=== PATIENT | female | born 1955 | race Caucasian/White ===

== ENCOUNTER 2023-08-10 11:02 | Outpatient (CLI) | payer MEDICARE, OTHER, SELFPAY | END 2023-08-10 11:03 | disposition home or self-care (01) | LOC: LAB 11:05 | PROVIDERS: PCP Student in an Organized Health Care Education/Training Program; Visit Provider Surgery | DX: Z01.818 Encounter for other preprocedural examination (principal) | CPT/HCPCS: 36415; 86850; 86900; 86901 ==

== ENCOUNTER 2023-08-12 09:21 | Day surgery (SDC) | payer MEDICARE, OTHER, SELFPAY ==
[2023-08-12] VITALS (31 sets, daily range): BP systolic 85–139; BP diastolic 39–86; PULSE 52–94; RESP 10–20; TEMP 35.2–37.1; O2SAT 92–100; BMI 39.4
[2023-08-12] MEDS: LACTATED RINGERS 1000 ML 1,000 ML 100 ML IV ×2 (09:30→12:27)
[2023-08-12] MEDS: ACETAMINOPHEN 500 MG TABLET 1000 MG PO ×3 (09:38→21:32)
[2023-08-12] MEDS: OXYCODONE (CR) 10 MG TAB.ER.12H PO (09:39)
[2023-08-12] MEDS: SODIUM CHLORIDE 0.9 % (FLUSH) 10 ML SYRINGE IVF (09:39)
[2023-08-12] MEDS: CELECOXIB 200 MG CAPSULE PO (09:39)
[2023-08-12] MEDS: fentaNYL 100 MCG/2 ML inj IVP (10:49)
[2023-08-12] MEDS: MIDAZOLAM HCL 1 MG/ML inj IVP (10:49)
--- NOTE | 2023-08-12 11:01 | SUR.PREOP ---
Addendum entered by Shraddha Siddiqui RN 08/12/23 11:03: Time Out [id number] Original Note: TIME?OUT:? PT/RN/MDA?VERIFICATION?OF?SURGICAL?SITE Left Hip,?PROCEDURE Nerve Block,?AND?CONSENT OBTAINED?PRIOR?TO?INVASIVE?PROCEDURE.
[2023-08-12] MEDS: TRANEXAMIC ACID 100 MG/ML INJ 1000 MG IV (11:35)
[2023-08-12] MEDS: CEFAZOLIN 2 GM INJ IVP (11:39)
--- NOTE | 2023-08-12 11:45 | CRLHL7_ITS ---
For Patients: As a result of the Cures Act, medical imaging exams and procedure reports are released immediately into your electronic medical record. You may view this report before your referring provider. If you have questions, please contact your health care provider. Indication: Hip replacement surgery Technique: AP hip fluoroscopic images. Fluoroscopy time 41.2 seconds. Findings/Impression: Hardware from a left total hip arthroplasty is in satisfactory position. Dictated by Jorge Brown MD @ 08/13/2023 6:21:25 AM (Electronically Signed)
--- NOTE | 2023-08-12 12:41 | CRLHL7_ITS ---
For Patients: As a result of the Cures Act, medical imaging exams and procedure reports are released immediately into your electronic medical record. You may view this report before your referring provider. If you have questions, please contact your health care provider. Indication: Postop Technique: AP hip center pelvis and lateral view left hip Findings/Impression: Hardware from a left total hip arthroplasty is in satisfactory position. Bone alignment is normal. No sign of acute fracture. Postop changes are within normal limits. Dictated by Jorge Brown MD @ 08/13/2023 6:23:14 AM (Electronically Signed)
--- NOTE | 2023-08-12 12:44 | PM.ORPRC ---
Procedure Note Date of procedure: 08/12/23 Procedure: PREOPERATIVE DIAGNOSIS: Left hip osteoarthritis POSTOPERATIVE DIAGNOSIS: Left hip osteoarthritis NAME OF OPERATION: Left total hip arthroplasty SURGEON: Jos eLuis Hunter MD STRAW HAT MACHINE OPERATOR: Mariza Grace PA-C, ANABEL Vazquez IMPLANTS: 1. [employer] [place] # 52 sector ingrowth cup 2. 36 x 52 +4 neutral polyethylene 3. Actis # 7 standard collared ingrowth stem 4. 36 + 1.5 ceramic femoral head ANESTHESIA: General ESTIMATED BLOOD LOSS: 850 cc COMPLICATIONS: None SPECIMENS: None DRAINS: None PREOPERATIVE ANTIBIOTICS: Ancef 2 grams INDICATIONS: The patient is a 68-year-old with a longstanding history of severe, unrelenting left hip pain secondary to end-stage left hip osteoarthritis. Despite appropriate nonoperative management, including activity modification, use of an assist device, anti-inflammatories, [id number] pain medication, physical therapy and injections, they continue to have pain and disability. Operative intervention was offered. The risks, benefits and expected outcomes were discussed in detail. These included but were not limited to: Infection, bleeding, injury to blood vessel or nerve, venous thromboembolism. All questions were answered to their satisfaction. Use of an transition assistant was necessary throughout the case for patient positioning and safety, soft tissue retraction and closure. PROCEDURE: The patient was placed supine on the [place] table. General anesthesia was administered. The transition assistant made sure the patient was properly positioned. The left hip was prepped and draped in the usual sterile fashion. The image intensifier was brought in for a perfect AP pelvis and a perfect double tear drop AP view of each hip which were used for intraoperative templating with our fluoroscopic guide. An oblique incision was made 3 cm distal and 3 cm lateral to the anterior superior iliac spine. The transition assistant retracted the soft tissues to protect them. Subcutaneous dissection was taken with electrocautery to the superficial fascia. The fascia was divided in line with the incision. Blunt dissection was carried medially to the tensor fascia mervin and sartorius interval. Deep dissection was carried with electrocautery. The circumflex vessels were cauterized and divided. The capsule was exposed and then divided in a T-fashion, tagged with #1 Ethibond sutures. Retractors were placed in the joint, held by the transition assistant. The corkscrew was placed in the femoral head. The neck cut was made in the subcapital region. We made a second neck cut more distal. The napkin ring of bone was removed. The femoral head was removed intact. Acetabular retractors were placed, held by the transition assistant. The labrum was sharply debrided. The capsule was released. The 43 mm reamer was used to the true medial wall. We then enlarged in 2 mm increments using the image intensifier for our reamer placement. We impacted the cup which had excellent purchase. We placed the hole eliminator and the polyethylene. Attention was then turned to the proximal femur. The limb was placed in 140 degrees of external rotation, maximum extension and adduction. A significant amount of time was spent releasing the capsule to allow us to deliver the femur into the wound and complete the femoral side safely. Retractors were held by the transition assistant throughout the femoral preparation. The final cigar and box examiner and canal finder were used. Broaches were used to a stable size. The calcar reamer was used. Trial components were placed. The hip was reduced and was found to be stable with appropriate soft tissue tension. Length and offset had been nicely restored using the image intensifier and our fluoroscopic guide. Trial components were removed. The stem was impacted. We placed the femoral head. Again, the hip was reduced and was found to be stable with appropriate soft tissue tension. Length and offset had been nicely restored. The transition assistant did a three minute dilute Betadine solution soak. The transition assistant irrigated the wound with 3 liters of normal saline via pulse lavage. The transition assistant repaired the anterior capsule with a #1 Vicryl and our previously placed Ethibond sutures. The transition assistant closed the fascia over the tensor fascia mervin with a #1 PDO Stratafix, subcutaneous tissues with 2-0 Vicryl, skin with a running 3-0 Stratafix and glue. A dry dressing was applied by the transition assistant. Sponge and needle counts were correct x 2. The patient tolerated the procedure well; there were no apparent complications. They were awakened and extubated in the operating room, sent to the Post-Anesthesia Care Unit in satisfactory condition. PLAN: 1. The patient will be mobilized with physical therapy, weight-bearing as tolerates 2. Xarelto x 5 days then aspirin x 30 days will be used for DVT prophylaxis 3. The patient will be discharged once medically appropriate
--- NOTE | 2023-08-12 13:37 | W.ANESCHARGE ---
Anesthesia Charges Start Date/Time Anesthesia Start Date: 08/12/23 Anesthesia Start Time: 11:08 Stop Date/Time Anesthesia Stop Date: 08/12/23 Anesthesia Stop Time: 13:34
--- NOTE | 2023-08-12 13:42 | P.NB_ITS ---
Nerve Block Nerve Block Time Seen by Provider: 10:57 Date Seen: 08/12/23 Type of block requested by surgeon for post-operative analgesia: FAVIOLA/LFCN Side: left Time out performed: Yes Verification of patient name: Yes Verification of date of : Yes Site marking: site marked Name of person performing procedure: Albert Assistants, if any: [place] Continuous monitoring Was continuous monitoring of O2 sat, B/P, monitoring and evaluation advisor, recorded every 15 minutes?: Yes Procedure Checklist: sterile prep, needles and gloves Ultrasound guided. Images saved: Yes Medications given in 5ml increments after negative aspiration: Ropivicaine %: 0.5 mL: 30 Needle gauge: 20 Decadron (mg): 10 Precedex (mcg): 25 Patient tolerated procedure well: Yes Additional comments: Needle noted below psoas tendon needle noted adjacent to LFCN Block Charges Block Charge (with Pro Fee): Other Periph Nerve Block Use of Ultrasound Machine for Block: Yes- US Guidance/pain block
--- NOTE | 2023-08-12 13:43 | W.ANESCHARGE ---
Anesthesia Charges Start Date/Time Anesthesia Start Date: 08/12/23 Anesthesia Start Time: 11:08 Stop Date/Time Anesthesia Stop Date: 08/12/23 Anesthesia Stop Time: 13:34
[2023-08-12] MEDS: ONDANSETRON 2 MG/ML inj 4 MG IVP ×2 (13:45→20:43)
[2023-08-12] MEDS: KETOROLAC 15 MG/ML inj IVP (13:47)
[2023-08-12] MEDS: fentaNYL 100 MCG/2 ML inj 50 MCG IVP ×2 (14:00→14:24)
--- NOTE | 2023-08-12 15:12 | PM.IMCN1 ---
Date of Consult Consult date: 08/12/23 Requesting Physician: Orthopedics Primary Care Provider: Nori Haque PA-C Consult Narrative Narrative: HOSPITALIST CONSULT NAME OF OPERATION: Left total hip arthroplasty SURGEON: Jose Luis Hunter MD PLANT ELECTRICIAN: Mariza Grace PA-C, ANABEL Vazquez ANESTHESIA: General ESTIMATED BLOOD LOSS: 850 cc - pre-op hemoglobin 14.8 on 08/03/23 COMPLICATIONS: None SPECIMENS: None DRAINS: None The hospital medicine team was asked by the orthopedic surgery team to manage the patient's hypertension, acute blood loss, obesity. There have been no perioperative complications. However, the 850 mL blood loss is noted. Updated and reviewed the active medical problems, past medical history, past surgical history, social history, allergies and medications in our electronic EMR. From PCP Patient is a 68-year-old female who presents today for preop evaluation and clearance prior to left hip replacement on 08/12/2023. Patient is vitally stable. She has never had general anesthesia in the past. She has no family history of difficulty with anesthesia. She feels well and denies any chest pain, shortness of breath, abdominal pain, or changes in bowel or bladder. PHYSICAL EXAM: sleepy. alert when awakened. c/o of pain. CODE STATUS: FULL CODE CONSTITUTIONAL: Conversive, good historian. A/O. Knows setting and context. VITAL SIGNS: 101/83. Pulse 60. Respirations 10. Afebrile. O2 sat 90% air HEENT: Normocephalic, atraumatic. PERRL, EOMI, conjunctivae pink, no scleral icterus. Ears and nose externally normal. Pharynx normal. NECK: No JVD. No carotid bruit, no thyromegaly, no adenopathy. CHEST: Clear to auscultation bilaterally HEART: S1 and S2 normal. ABDOMEN: Flat, soft, nontender. Normal bowel sounds. Moderately obese. EXTREMITIES: No edema. MUSCULOSKELETAL: NEURO: Cranial nerves intact. Mentation normal. Normal affect. SKIN: No rashes, petechiae, concerning changes PSYCHIATRIC: Mentation normal. INVESTIGATIONS: EMR Reviewed; Pre-OP Reviewed DISPOSITION: DVT: Agree with Ortho team decision GI: PO intake PFSH [facility] Medical History (Updated 08/12/23 @ 15:38 by Keysha Ontiveros MD) History of tobacco abuse ?Z87.891 - Personal history of nicotine dependence (ICD-10) Bilateral hip joint arthritis ?M16.0 - Bilateral primary osteoarthritis of hip (ICD-10) Hypertension ?I10 - Essential (primary) hypertension (ICD-10) Osteopenia ?M85.80 - Other specified disorders of bone density and structure, unspecified site (ICD-10) Vitamin D deficiency ?E55.9 - Vitamin D deficiency, unspecified (ICD-10) Hyperlipidemia ?E78.5 - Hyperlipidemia, unspecified (ICD-10) Surgical History (Updated 08/12/23 @ 15:38 by Keysha Ontiveros MD) Status post total hip replacement, left ?Z96.642 - Presence of left artificial hip joint (ICD-10) History of ?Z98.891 - History of uterine scar from previous surgery (ICD-10) Social History What is your current living situation?: I presently have a place to live In the past 12 months, utilities in danger of being shut off: no In past 12 months, lack of transportation kept you from medical appts, meetings, work, or getting things needed for daily living: no In the past 12 mos, have been you worried that your food would run out before you had money to buy more?: never true In the past 12 mos, the food you bought just didn't last and you didn't have money to buy more?: never true Smoking Status: Former smoker Do you use any of these nicotine containing products: E-Cigarettes Second hand tobacco smoke exposure: No How often do you have a drink containing alcohol: never AUDIT-C Alcohol total score: 0 Non-prescribed substance use: denies use Caffeine: No How often does anyone, including family, friends and others, physically hurt you: never How often does anyone, including family, friends and others, insult or talk down to you: never How often does anyone, including family, friends and others, threaten you with harm: never How often does anyone, including family, friends and others, scream or curse at you: never Meds Home Medications and Allergies Home Medications Medication Instructions Recorded Confirmed Type atorvastatin 20 mg tablet 20 mg PO HS 07/21/23 08/12/23 History calcium carb-vit [id number] 1 tab PO DAILY 07/21/23 08/12/23 History 333 mg-200 unit-133 mg-5 mg tablet hydrochlorothiazide 12.5 mg tablet 12.5 mg PO DAILY 07/21/23 08/12/23 History lisinopril 10 mg tablet 10 mg PO DAILY 07/21/23 08/12/23 History meloxicam 15 mg tablet 15 mg PO DAILY 07/21/23 08/12/23 History cholecalciferol (vitamin D3) 25 25 mcg PO DAILY 08/12/23 08/12/23 History mcg (1,000 unit) capsule multivitamin with minerals-folic 1 tab PO DAILY 08/12/23 08/12/23 History acid 0.4 mg tablet (One-A-Day Women's 50 Plus) Allergies Allergy/AdvReac Type Severity Reaction Status Date / Time codeine Allergy Mild feeling as Verified 08/12/23 09:29 if flying out of body Penicillins Allergy Hives Verified 08/12/23 09:29 Exam Const: Vital Signs, click to edit/add: Vital Signs - 24 hr 08/12/23 09:40 08/12/23 10:48 08/12/23 10:50 Temperature 98.4 F Pulse Rate 79 70 65 Respiratory Rate 16 16 16 Blood Pressure 139/86 128/81 117/60 Blood Pressure [Le ft Arm] Pulse Oximetry 97 99 97 Oxygen Delivery Me thod Room Air Nasal Cannula Nasal Cannula Oxygen Flow Rate 2 2 08/12/23 10:55 08/12/23 11:00 08/12/23 13:29 Temperature 97.0 F L Pulse Rate 64 66 94 Respiratory Rate 16 16 20 Blood Pressure 115/79 121/57 L 136/64 Blood Pressure [Le ft Arm] Pulse Oximetry 97 95 96 Oxygen Delivery Me thod Nasal Cannula Nasal Cannula Room Air Oxygen Flow Rate 2 2 08/12/23 13:34 08/12/23 13:39 08/12/23 13:44 Temperature Pulse Rate 82 70 64 Respiratory Rate 20 18 18 Blood Pressure 128/72 111/58 L 109/50 L Blood Pressure [Le ft Arm] Pulse Oximetry 96 96 96 Oxygen Delivery Me thod Room Air Room Air Room Air Oxygen Flow Rate 08/12/23 13:49 08/12/23 13:54 08/12/23 13:59 Temperature Pulse Rate 64 62 54 L Respiratory Rate 18 16 16 Blood Pressure 110/57 L 95/57 L 111/39 L Blood Pressure [Le ft Arm] Pulse Oximetry 96 96 96 Oxygen Delivery Me thod Room Air Room Air Room Air Oxygen Flow Rate 08/12/23 14:04 08/12/23 14:09 08/12/23 14:15 Temperature Pulse Rate 53 L 55 L 52 L Respiratory Rate 12 12 12 Blood Pressure 102/53 L 108/52 L 113/60 Blood Pressure [Le ft Arm] Pulse Oximetry 93 93 93 Oxygen Delivery Me thod Room Air Room Air Nasal Cannula Oxygen Flow Rate 4 08/12/23 14:20 08/12/23 14:25 08/12/23 14:30 Temperature Pulse Rate 57 L 54 L 55 L Respiratory Rate 12 12 12 Blood Pressure 122/61 129/66 108/59 L Blood Pressure [Le ft Arm] Pulse Oximetry 100 100 98 Oxygen Delivery Me thod Nasal Cannula Nasal Cannula Room Air Oxygen Flow Rate 4 2 08/12/23 15:06 Temperature 96.4 F L Pulse Rate 60 Respiratory Rate 10 L Blood Pressure Blood Pressure [Le ft Arm] 101/83 Pulse Oximetry Oxygen Delivery Me thod Room Air Oxygen Flow Rate Assessment and Plan Assessment and plan (1) Status post total hip replacement, left: Problem comment: Elsa PLATT, 08/12/23. -will monitor blood loss (850cc reported) effect with orthostatics, blood pressure measurement and f/u hemoglobin in am. - Hospital medicine team is happy to follow through to discharge. I will hold her antihypertensives in the morning. will follow, as above, orthostatics, blood pressure and follow-up hemoglobins Status: Acute (2) Hypertension: Problem comment: hydrochlorothiazide 12.5 mg daily, lisinopril 10 mg daily - on hold for 08/13 Status: Acute (3) Obesity: Problem comment: BMI 38 Status: Acute (4) History of tobacco abuse: Problem comment: 1982 to 2022 Status: Acute
[2023-08-12] MEDS: OXYCODONE 5 MG TABLET PO ×2 (15:46→19:37)
--- NOTE | 2023-08-12 16:09 | PC.NURSE ---
Addendum entered by Dolly Patton RN 08/12/23 16:18: Care plan initiated. Pt admitted under MS recovery. Original Note: Pt arrived via hospital bed from PACU s/p LTHA with Dr. Hunter at 1441. Pt settled by Hansa HYDE and initial assessment from PACU completed. Please see frequent post op VS per protocol. Report provided to Nicolette HYDE for evening shift.
[2023-08-12] MEDS: LACTATED RINGERS 1000 ML 1,000 ML 75 ML IV (17:59)
[2023-08-12] MEDS: CEFAZOLIN 2 GM in 0.9 % SODIUM CHLORIDE Mini-bag 100 ML IVPB (18:02)
[2023-08-12] MEDS: ATORVASTATIN 10 MG TABLET 20 MG PO (20:57)
[2023-08-12] MEDS: SENNOSIDES 1 TAB TABLET 2 TAB PO (20:58)
[2023-08-13] MEDS: OXYCODONE 5 MG TABLET PO ×2 (00:02→07:47)
[2023-08-13] MEDS: CEFAZOLIN 2 GM in 0.9 % SODIUM CHLORIDE Mini-bag 100 ML IVPB (02:17)
[2023-08-13 02:20] VITALS: BP 120/68; PULSE 75; RESP 18; TEMP 36.8; O2SAT 97
[2023-08-13] MEDS: ACETAMINOPHEN 500 MG TABLET 1000 MG PO ×2 (05:15→10:00)
[2023-08-13 06:32] VITALS: BP 109/54; BP 118/64; BP 120/58; PULSE 71; PULSE 83; PULSE 93
--- NOTE | 2023-08-13 06:39 | PC.NURSE ---
Shift note [id number]: Pt alert & oriented x 4 and able to make needs known. She has been continent of bladder and has been ambulating to bathroom with FWW, GB and assist of 1-2. Pt able to safely ambulate with assist of 1 with last transfer/ambulation this morning. Pain to left hip has been controlled with PRN Oxycodone, rest, repositioning and ice. Pt reported pain to left hip 1/10 at rest though requested PRN Oxycodone to take before transferring/ambulating to bathroom and then getting into bed. Dressing to left hip noted to be clean, dry and intact. CMS to LLE noted to be intact with TEDs and SCDs worn. IV to R wrist SL after last IV ABX. Pt has had no c/o shortness of breath, CP, N/V or numbness or tingling. Pt has been continent of bladder with last BM of 08/11/23 per pt report. Orthostatic blood pressure assessment completed per MD order: Lying B/P 118/64 and lying pulse of 71, sitting B/P 120/58 and sitting pulse of 83 and standing B/P of 109/54 and standing pulse of 93. Pt denies dizziness/lightheadedness with transferring/ambulation when asked. IS performed with pt reaching 1,500 mL.
[2023-08-13 06:44] LABS: Mean Corpuscular HGB Conc 32 gm/dL (32-36); Mean Corpuscular Hemoglobin 32 pg (26-34); Mean Corpuscular Volume 100 fL (80-100); Monocytes Percent Auto 9.8 % (0.0-11.0); Platelet Count* 233 K/uL (140-440); RDW Coefficient of Variation % 12.5 % (11.5-15.5); Red Blood Count 3.79 m/uL (4.00-5.20); White Blood Count* 12.29 K/uL (4.50-11.00)
[2023-08-13 06:45] LABS: Basophils Percent Auto 0.1 % (0.0-3.0); Immature Granulocytes Pct Auto 0.1 %
[2023-08-13 06:47] LABS: Slide Review Reflex No
[2023-08-13 07:05] LABS: Sodium* 136 mmol/L (135-149)
[2023-08-13 07:06] LABS: Potassium* 4.5 mmol/L (3.6-5.1)
[2023-08-13 07:09] LABS: Blood Urea Nitrogen* 19 mg/dL (7-30); Creatinine* 0.8 mg/dL (0.5-1.5); Est. Creatinine Clearance* 45.16; Estimated Glomerular Filt Rate 81 ml/min
[2023-08-13 07:30] VITALS: BP 115/87; PULSE 73; RESP 18; TEMP 37.1; O2SAT 99
--- NOTE | 2023-08-13 08:20 | PM.ORPN ---
Subjective Subjective Date Seen: 08/13/23 Interval history: Pain well controlled Ortho Exam Narrative Exam Narrative: No calf tenderness CMS normal Const Vital Signs, click to edit/add: Vital Signs - 24 hr 08/12/23 09:40 08/12/23 10:48 08/12/23 10:50 Temperature 98.4 F Pulse Rate 79 70 65 Pulse Rate [Pulse Oximeter] Pulse Rate [orthostatic lying Left Radial] Pulse Rate [orthostatic sitting Left Radial] Pulse Rate [orthostatic standing Left Radial] Respiratory Rate 16 16 16 Blood Pressure 139/86 128/81 117/60 Blood Pressure [Left Arm] Blood Pressure [orthostatic lying Left Arm] Blood Pressure [orthostatic sitting Left Arm] Blood Pressure [orthostatic standing Left Arm] Pulse Oximetry 97 99 97 Oxygen Delivery Method Room Air Nasal Cannula Nasal Cannula Oxygen Flow Rate 2 2 08/12/23 10:55 08/12/23 11:00 08/12/23 13:29 Temperature 97.0 F L Pulse Rate 64 66 94 Pulse Rate [Pulse Oximeter] Pulse Rate [orthostatic lying Left Radial] Pulse Rate [orthostatic sitting Left Radial] Pulse Rate [orthostatic standing Left Radial] Respiratory Rate 16 16 20 Blood Pressure 115/79 121/57 L 136/64 Blood Pressure [Left Arm] Blood Pressure [orthostatic lying Left Arm] Blood Pressure [orthostatic sitting Left Arm] Blood Pressure [orthostatic standing Left Arm] Pulse Oximetry 97 95 96 Oxygen Delivery Method Nasal Cannula Nasal Cannula Room Air Oxygen Flow Rate 2 2 08/12/23 13:34 08/12/23 13:39 08/12/23 13:44 Temperature Pulse Rate 82 70 64 Pulse Rate [Pulse Oximeter] Pulse Rate [orthostatic lying Left Radial] Pulse Rate [orthostatic sitting Left Radial] Pulse Rate [orthostatic standing Left Radial] Respiratory Rate 20 18 18 Blood Pressure 128/72 111/58 L 109/50 L Blood Pressure [Left Arm] Blood Pressure [orthostatic lying Left Arm] Blood Pressure [orthostatic sitting Left Arm] Blood Pressure [orthostatic standing Left Arm] Pulse Oximetry 96 96 96 Oxygen Delivery Method Room Air Room Air Room Air Oxygen Flow Rate 08/12/23 13:49 08/12/23 13:54 08/12/23 13:59 Temperature Pulse Rate 64 62 54 L Pulse Rate [Pulse Oximeter] Pulse Rate [orthostatic lying Left Radial] Pulse Rate [orthostatic sitting Left Radial] Pulse Rate [orthostatic standing Left Radial] Respiratory Rate 18 16 16 Blood Pressure 110/57 L 95/57 L 111/39 L Blood Pressure [Left Arm] Blood Pressure [orthostatic lying Left Arm] Blood Pressure [orthostatic sitting Left Arm] Blood Pressure [orthostatic standing Left Arm] Pulse Oximetry 96 96 96 Oxygen Delivery Method Room Air Room Air Room Air Oxygen Flow Rate 08/12/23 14:04 08/12/23 14:09 08/12/23 14:15 Temperature Pulse Rate 53 L 55 L 52 L Pulse Rate [Pulse Oximeter] Pulse Rate [orthostatic lying Left Radial] Pulse Rate [orthostatic sitting Left Radial] Pulse Rate [orthostatic standing Left Radial] Respiratory Rate 12 12 12 Blood Pressure 102/53 L 108/52 L 113/60 Blood Pressure [Left Arm] Blood Pressure [orthostatic lying Left Arm] Blood Pressure [orthostatic sitting Left Arm] Blood Pressure [orthostatic standing Left Arm] Pulse Oximetry 93 93 93 Oxygen Delivery Method Room Air Room Air Nasal Cannula Oxygen Flow Rate 4 08/12/23 14:20 08/12/23 14:25 08/12/23 14:30 Temperature Pulse Rate 57 L 54 L 55 L Pulse Rate [Pulse Oximeter] Pulse Rate [orthostatic lying Left Radial] Pulse Rate [orthostatic sitting Left Radial] Pulse Rate [orthostatic standing Left Radial] Respiratory Rate 12 12 12 Blood Pressure 122/61 129/66 108/59 L Blood Pressure [Left Arm] Blood Pressure [orthostatic lying Left Arm] Blood Pressure [orthostatic sitting Left Arm] Blood Pressure [orthostatic standing Left Arm] Pulse Oximetry 100 100 98 Oxygen Delivery Method Nasal Cannula Nasal Cannula Room Air Oxygen Flow Rate 4 2 08/12/23 14:41 08/12/23 14:41 08/12/23 15:00 Temperature 96.4 F L 96.4 F L 96.9 F L Pulse Rate Pulse Rate [Pulse Oximeter] 60 60 52 L Pulse Rate [orthostatic lying Left Radial] Pulse Rate [orthostatic sitting Left Radial] Pulse Rate [orthostatic standing Left Radial] Respiratory Rate 10 L 10 L 12 Blood Pressure Blood Pressure [Left Arm] 101/83 101/83 110/48 L Blood Pressure [orthostatic lying Left Arm] Blood Pressure [orthostatic sitting Left Arm] Blood Pressure [orthostatic standing Left Arm] Pulse Oximetry 96 96 97 Oxygen Delivery Method Room Air Room Air Room Air Oxygen Flow Rate 08/12/23 15:00 08/12/23 15:06 08/12/23 15:15 Temperature 96.9 F L 96.4 F L 96.4 F L Pulse Rate 60 Pulse Rate [Pulse Oximeter] 52 L 56 L Pulse Rate [orthostatic lying Left Radial] Pulse Rate [orthostatic sitting Left Radial] Pulse Rate [orthostatic standing Left Radial] Respiratory Rate 12 10 L 12 Blood Pressure Blood Pressure [Left Arm] 110/48 L 101/83 90/42 L Blood Pressure [orthostatic lying Left Arm] Blood Pressure [orthostatic sitting Left Arm] Blood Pressure [orthostatic standing Left Arm] Pulse Oximetry 97 92 Oxygen Delivery Method Room Air Room Air Room Air Oxygen Flow Rate 08/12/23 15:30 08/12/23 15:45 08/12/23 16:00 Temperature 95.3 F L 95.3 F L 95.3 F L Pulse Rate Pulse Rate [Pulse Oximeter] 57 L 66 68 Pulse Rate [orthostatic lying Left Radial] Pulse Rate [orthostatic sitting Left Radial] Pulse Rate [orthostatic standing Left Radial] Respiratory Rate 14 12 14 Blood Pressure Blood Pressure [Left Arm] 108/58 L 105/65 85/68 L Blood Pressure [orthostatic lying Left Arm] Blood Pressure [orthostatic sitting Left Arm] Blood Pressure [orthostatic standing Left Arm] Pulse Oximetry 92 95 95 Oxygen Delivery Method Room Air Room Air Room Air Oxygen Flow Rate 08/12/23 16:30 08/12/23 17:30 08/12/23 18:30 Temperature 95.6 F L 96.5 F L 97.1 F L Pulse Rate Pulse Rate [Pulse Oximeter] 79 66 76 Pulse Rate [orthostatic lying Left Radial] Pulse Rate [orthostatic sitting Left Radial] Pulse Rate [orthostatic standing Left Radial] Respiratory Rate 14 14 16 Blood Pressure Blood Pressure [Left Arm] 97/57 L 99/53 L 112/62 Blood Pressure [orthostatic lying Left Arm] Blood Pressure [orthostatic sitting Left Arm] Blood Pressure [orthostatic standing Left Arm] Pulse Oximetry 95 97 98 Oxygen Delivery Method Room Air Room Air Room Air Oxygen Flow Rate 08/12/23 19:30 08/12/23 20:29 08/12/23 23:56 Temperature 97.3 F L 98.7 F 96.9 F L Pulse Rate Pulse Rate [Pulse Oximeter] 73 86 70 Pulse Rate [orthostatic lying Left Radial] Pulse Rate [orthostatic sitting Left Radial] Pulse Rate [orthostatic standing Left Radial] Respiratory Rate 16 16 16 Blood Pressure Blood Pressure [Left Arm] 104/62 107/61 103/52 L Blood Pressure [orthostatic lying Left Arm] Blood Pressure [orthostatic sitting Left Arm] Blood Pressure [orthostatic standing Left Arm] Pulse Oximetry 94 94 93 Oxygen Delivery Method Room Air Room Air Room Air Oxygen Flow Rate 2 08/13/23 02:20 08/13/23 06:32 Temperature 98.2 F Pulse Rate Pulse Rate [Pulse Oximeter] 75 Pulse Rate [orthostatic lying Left Radial] 71 Pulse Rate [orthostatic sitting Left Radial] 83 Pulse Rate [orthostatic standing Left Radial] 93 Respiratory Rate 18 Blood Pressure Blood Pressure [Left Arm] 120/68 Blood Pressure [orthostatic lying Left Arm] 118/64 Blood Pressure [orthostatic sitting Left Arm] 120/58 L Blood Pressure [orthostatic standing Left Arm] 109/54 L Pulse Oximetry 97 Oxygen Delivery Method Room Air Oxygen Flow Rate Assessment and Plan Assessment and plan (1) Status post total hip replacement, left: Status: Acute Plan Doing well after left total hip arthroplasty DC home today after therapy.
[2023-08-13] MEDS: RIVAROXABAN 10 MG TABLET PO (08:35)
[2023-08-13] MEDS: SENNOSIDES 1 TAB TABLET 2 TAB PO (08:36)
--- NOTE | 2023-08-13 12:01 | PC.NURSE ---
Pt eval by Dr. Hunter and ortho PA. PT evaluation with Tanisha Kingsley OT eval with Tanisha. IV site discontinued. Pt rating her left hip pain 1-2 out of 10. See eMar for medications provided. Pt verbalized understanding of d/c diagnosis, home meds, new prescriptions, f/up appt and sx to report urgently. Dressing CDI, active ice sent home with patient. Discharged via w/c at 11:15 am w/personal belongings to own home with son Shaggy as transportation.
== END 2023-08-13 11:15 | disposition home or self-care (01) ==
LOC: OR 09:22 → MEDSURG 09:25
PROVIDERS: PCP Student in an Organized Health Care Education/Training Program; Visit Provider Orthopaedic Surgery
PROC: (CPT 27130; principal; 2023-08-12 11:45)
DX: M16.12 Unilateral primary osteoarthritis, left hip (principal); G89.18 Other acute postprocedural pain; D62 Acute posthemorrhagic anemia; I10 Essential (primary) hypertension; E66.9 Obesity, unspecified; Z68.38 Body mass index [BMI] 38.0-38.9, adult
CPT/HCPCS: 27130; 01214; 36415; 64450; 73501; 76000; 76942; 82565; 84132; 84295; 84520; 85025; 97116; 97161; 97165; 97535; A9270; C1776; J0690; J1100; J1170; J1200; J1885; J2250; J2405; J2704; J2710; J2795; J3010; J7120

== ENCOUNTER 2023-09-09 13:00 | Outpatient (RCR) | payer MEDICARE, OTHER, SELFPAY | END 2023-10-20 15:08 | disposition home or self-care (01) | PROVIDERS: PCP Student in an Organized Health Care Education/Training Program; Visit Provider Orthopaedic Surgery | DX: M16.12 Unilateral primary osteoarthritis, left hip (principal); Z96.642 Presence of left artificial hip joint; Z51.89 Encounter for other specified aftercare | CPT/HCPCS: 97110; 97116; 97161 ==

== ENCOUNTER 2024-01-12 13:05 | Observation (INO) | payer MEDICARE, OTHER, SELFPAY ==
[2024-01-12] VITALS (14 sets, daily range): BP systolic 127–139; BP diastolic 74–96; PULSE 62–84; RESP 18–20; TEMP 36.1–37.3; O2SAT 94–98; BMI 38.6; BMI 37.8
--- NOTE | 2024-01-12 15:19 | ED.GENADULT ---
HPI - General Adult General Time Seen by Provider: 15:19 Date Seen: 01/12/24 Chief complaint: Hip Injury/Pain Stated complaint: L hip pain, swelling Time Seen by Provider: 01/12/24 15:18 Source: patient and RN notes reviewed Mode of arrival: ambulatory Limitations: no limitations History of Present Illness HPI narrative: This 68yo female is coming in with redness on the outside of her left hip. She is not aware of any injury or anything causing loss of integrity of the skin. Her left hip has been more painful really since this weekend, hurting in the groin to walk more than usual, hurts with getting out of bed/position changes. Friday she felt like she was freezing but she didn't note any temperatures. No night sweats. She walked by the mirror today and noticed significant redness of the skin over the hip area. Skin is sore. Her left hip was replaced here by Dr. Hunter on 08/12/23 for arthritis per report. Related Data Home Medications Medication Instructions Recorded Confirmed atorvastatin 20 mg tablet 20 mg PO HS 07/21/23 01/12/24 calcium carb-vit [id number] 1 tab PO DAILY 07/21/23 01/12/24 333 mg-200 unit-133 mg-5 mg tablet hydrochlorothiazide 12.5 mg tablet 12.5 mg PO DAILY 07/21/23 01/12/24 lisinopril 10 mg tablet 10 mg PO DAILY 07/21/23 01/12/24 cholecalciferol (vitamin D3) 25 25 mcg PO DAILY 08/12/23 01/12/24 mcg (1,000 unit) capsule multivitamin with minerals-folic 1 tab PO DAILY 08/12/23 01/12/24 acid 0.4 mg tablet (One-A-Day Women's 50 Plus) diclofenac sodium 1 % topical gel 2 g topical QID 01/12/24 01/12/24 Allergies Allergy/AdvReac Type Severity Reaction Status Date / Time codeine Allergy Mild feeling as Verified 09/24/23 10:50 if flying out of body Penicillins Allergy Hives Verified 09/24/23 10:50 [place] And Derivatives AdvReac Mild Hives Verified 01/12/24 19:50 berries AdvReac Mild Hives Uncoded 01/12/24 19:50 Review of Systems Status of ROS: Reports: 6 or more systems reviewed and unremarkable except as noted in History and below [facility] Medical History History of tobacco abuse ?Z87.891 - Personal history of nicotine dependence (ICD-10) Bilateral hip joint arthritis ?M16.0 - Bilateral primary osteoarthritis of hip (ICD-10) Hypertension ?I10 - Essential (primary) hypertension (ICD-10) Osteopenia ?M85.80 - Other specified disorders of bone density and structure, unspecified site (ICD-10) Vitamin D deficiency ?E55.9 - Vitamin D deficiency, unspecified (ICD-10) Hyperlipidemia ?E78.5 - Hyperlipidemia, unspecified (ICD-10) Surgical History Status post total hip replacement, 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) ?Z96.642 - Presence of left artificial hip joint (ICD-10) History of ?Z98.891 - History of uterine scar from previous surgery (ICD-10) Social History What is your current living situation?: I presently have a place to live Problems where you live: no known problems Problems where you live details: N/A In the past 12 months, utilities in danger of being shut off: no In past 12 months, lack of transportation kept you from medical appts, meetings, work, or getting things needed for daily living: no In the past 12 mos, have been you worried that your food would run out before you had money to buy more?: never true In the past 12 mos, the food you bought just didn't last and you didn't have money to buy more?: never true Highest level of school completed/degree received: high school graduate Smoking Status: Former smoker Do you use any of these nicotine containing products: E-Cigarettes Second hand tobacco smoke exposure: No How often do you have a drink containing alcohol: never AUDIT-C Alcohol total score: 0 Non-prescribed substance use: denies use Caffeine: Yes How often does anyone, including family, friends and others, physically hurt you: never How often does anyone, including family, friends and others, insult or talk down to you: never How often does anyone, including family, friends and others, threaten you with harm: never How often does anyone, including family, friends and others, scream or curse at you: never service: No Exam Const: Vital Signs, click to edit/add: Vital Signs - 24 hr 01/12/24 13:14 01/12/24 16:21 01/12/24 16:30 Temperature 97.0 F L Pulse Rate 76 72 Pulse Rate [Right Pulse Oximeter] 68 Respiratory Rate 18 Blood Pressure [Ri ght Upper Arm] 136/77 Pulse Oximetry 96 97 97 Oxygen Delivery Me thod Room Air 01/12/24 16:45 01/12/24 17:00 01/12/24 17:15 Temperature Pulse Rate 71 74 73 Pulse Rate [Right Pulse Oximeter] Respiratory Rate Blood Pressure [Ri ght Upper Arm] Pulse Oximetry 94 96 97 Oxygen Delivery Me thod 01/12/24 17:30 01/12/24 17:45 Temperature Pulse Rate 74 84 Pulse Rate [Right Pulse Oximeter] Respiratory Rate Blood Pressure [Ri ght Upper Arm] Pulse Oximetry 97 98 Oxygen Delivery Me thod This 68yo female is alert, interactive, no apparent distress. Face atraumatic, sclera clear, conjugate gaze. Able speak in complete sentences. Neck supple, no masses or adenopathy. Lungs are clear, good air entry, no wheezing or crackles. Patient's speech is normal. CV regular rate and rhythm, no murmur. Abdomen is obese but soft, nontender. She does allow me with flexion slight internal external rotation, nothing that would cause as any discontinuity of the hip but states there is some mild pain through this range of motion. She has thickened lower extremities but not any extensive pitting edema. Toenails are painted. She does have good mobility of her toes, normal sensation, including the left lower extremity. She was a stripe of erythema overlying that anterior left surgical scar, no fluctuance. Over the confluency of the left lateral hip extending down the outside of the leg, there is intensely warm erythema, some mild induration but no fluctuant areas. Skin is mildly tender when you touch. It is sharply demarcated. I see no vesicles. This certainly looks to be consistent with cellulitis. Documenting provider has reviewed patient's vital signs: yes Course Course ED Course: This patient certainly looks to have cellulitis of her soft tissues. There is an area overlying the old surgical scar and then 1 more laterally which is more significant area. Cellulitis is certainly consideration. With her hip having increased pain, do need to think about septic arthritis. Will start with hip imaging, see if he can see any loosening of the components. Will get full complement of labs including blood cultures. Reevaluation(s) Time of Reevaluation #1: 17:20 Reevaluation #1: Did discuss with patient plan on hospitalization. Obviously she would prefer to go home but is understanding and willing to go into the hospital for further IV antibiotics. She understands the importance of her underlying hip hardware, the need to make sure that there is no infection in there or cellulitis does not extend into the hip. Consultations Consultation #1: Did speak with Mariza MENDOZA from Orthopedics. Reviewed case with her. If x-ray is normal, patient is stable, treat cellulitis and patient can likely stay here. Time: 16:15 Consultation #2: Reviewed with hospitalist Dr. Ontiveros. We reviewed there is cellulitis, I personally feel that she still has pretty good range of motion of her left hip but do worry about the mild pain she is experiencing on range of motion. Have reviewed with her that I did give Ancef, was planning on adding in vancomycin. She would like me to hold on the vancomycin, is going to talk to Orthopedics, see if they want further imaging with CT or possibly just come into aspirate. She accepts the patient. Time: 17:16 Vital Signs Vital signs: Initial Vital Signs Temperature 97.0 F L 01/12/24 13:14 Temperature Source Temporal Artery Scan 01/12/24 13:14 Pulse Rate 68 01/12/24 13:14 Pulse Rhythm Regular 01/12/24 13:14 Pulse Strength 3+ Normal 01/12/24 13:14 Respiratory Rate 18 01/12/24 13:14 Blood Pressure 136/77 01/12/24 13:14 Blood Pressure Mean 96 01/12/24 13:14 Blood Pressure Position Sitting 01/12/24 13:14 Pulse Oximetry 96 01/12/24 13:14 Oxygen Delivery Method Room Air 01/12/24 13:14 Vital Signs Temperature 97.0 F L 01/12/24 13:14 Pulse Rate 68 01/12/24 13:14 Respiratory Rate 18 01/12/24 13:14 Blood Pressure 136/77 01/12/24 13:14 Pulse Oximetry 96 01/12/24 13:14 Oxygen Delivery Method Room Air 01/12/24 13:14 Temperature 99.2 F 01/12/24 19:45 Pulse Rate 79 01/12/24 19:45 Respiratory Rate 18 01/12/24 19:45 Blood Pressure 127/83 01/12/24 19:45 Pulse Oximetry 95 01/12/24 19:45 Oxygen Delivery Method Room Air 01/12/24 19:45 Medications Administered Medications: Generic Name Dose Route Start Last Admin Trade Name Mila PRN Reason Stop Dose Admin Acetaminophen 650 - 975 mg 01/12/24 18:19 01/12/24 19:27 Acetaminophen 325 Mg Tablet PO 975 mg Q6H PRN Administration Enoxaparin Sodium 40 mg 01/12/24 18:45 01/12/24 19:26 Enoxaparin 40 Mg/0.4 Ml Inj SUBCUT 40 mg Q24H FRANCHESCA Administration Gabapentin 100 mg 01/12/24 18:20 01/12/24 19:28 Gabapentin 100 Mg Capsule PO 100 mg TID FRANCHESCA Administration Ketorolac Tromethamine 30 mg 01/12/24 18:19 01/12/24 19:26 Ketorolac 30 Mg/Ml Inj IVP 30 mg Q6H PRN Administration Sodium Chloride 5 ml 01/12/24 18:19 01/12/24 19:28 Sodium Chloride 0.9 % (Flush) 10 Ml Syringe IVF 5 ml .FLUSH PRN Administration Discontinued Medications Generic Name Dose Route Start Last Admin Trade Name Fresh[place] PRN Reason Stop Dose Admin Cefazolin Sodium 2 gm/ Sodium 100 mls @ 200 mls/hr 01/12/24 16:16 01/12/24 17:25 Chloride IVPB 01/12/24 16:17 Infused ONCE ONE Infusion Pantoprazole Sodium 40 mg 01/12/24 18:19 01/12/24 19:26 Pantoprazole Sodium 40 Mg Inj IVP 01/12/24 18:20 40 mg ONCE ONE Administration Medical Decision Making Lab Data Lab results reviewed: Yes I reviewed the patient's lab results Labs: Lab Results 01/12/24 01/12/24 01/12/24 Range/Units 15:40 15:40 17:37 WBC 9.34 (4.50-11.00) K/uL RBC 4.77 (4.00-5.20) m/uL Hgb 13.9 (12.0-16.0) gm/dL Hct 41.0 (33.0-51.0) % MCV 86 (80-100) fL MCH 29 (26-34) pg MCHC 34 (32-36) gm/dL RDW Coeff of Kiran 15.0 (11.5-15.5) % Plt Count 246 (140-440) K/uL Neut % (Auto) 69.0 (42.0-72.0) % Lymph % (Auto) 20.9 (20-44) % [place] % (Auto) 9.6 (0.0-11.0) % Eos % (Auto) 0.2 (0.0-7.0) % Baso % (Auto) 0.2 (0.0-3.0) % Neut # (Auto) 6.44 (1.7-7.0) K/uL Lymph # (Auto) 1.95 (0.90-2.90) K/uL [place] # (Auto) 0.90 (0.00-0.90) K/UL Eos # (Auto) 0.02 (0.00-0.50) K/uL Baso # (Auto) 0.02 (0.00-0.30) K/uL Abs Immat Gran (auto) 0.01 (0.00-0.30) K/uL Imm/Tot Granulo (auto) 0.1 % ESR 42 H (2-20) mm/hr Sodium 133 L (135-149) mmol/L Potassium 3.3 L (3.6-5.1) mmol/L Chloride 100 (96-114) mmol/L Carbon Dioxide 28 (20-32) mmol/L Anion Gap 5 L (7-15) mEq/L BUN 17 (7-30) mg/dL Creatinine 0.8 (0.5-1.5) mg/dL Estimated Creat Clear 47.14 Estimated GFR 81 ml/min Glucose 102 (60-115) mg/dL Hemoglobin A1c 6.0 H (0-5.6) % Lactate 1.5 (0.5-1.9) mmol/L Calcium 9.7 (8.4-10.6) mg/dL Total Bilirubin 1.1 (0.1-1.5) mg/dL AST 42 H (12-35) U/L ALT 33 (4-35) U/L Alkaline Phosphatase 91 (40-150) U/L C-Reactive Protein 12.0 H (0.5-1.0) mg/dL Total Protein 8.2 (6.0-8.3) g/dL Albumin 4.5 (3.3-5.0) g/dL Procalcitonin 1.05 H Cancelled (<0.50) ng/mL Lab Acknowledgement Test Added Imaging Data XR left hip: Attestation: I have reviewed the pertinent imaging results. My impression: I did visualize patient's images, do not believe I see any hardware issues/lucency. Await Radiology over-read Radiologist's impression: Patient: DONN JESSICA Facility:?[facility] Patient ID:?[id number] Site Patient ID:?[id number]. Site :?[id number] Study:?XRay-Hip W/PELVIS AP-01/12/2024 4:05:31 PM Ordering Physician:?MANDEEP LÓPEZ Final Report: Indication: Left hip pain, cellulitis Technique: Frontal view of the pelvis and frontal and lateral views of the left hip Comparison: Radiographs on September 24, 2023 Findings/impression : No acute fracture or malalignment. Postsurgical changes of left total hip arthroplasty without evidence of hardware related complication. There is some osteoarthritic degenerative changes of the right hip. No suspicious osseous lesions. The soft tissues are unremarkable. Dictated by Hollis Aragon MD @ 01/12/2024 4:23:28 PM (Electronic Signature) Discharge Plan Discharge Clinical Impression: Cellulitis of left leg, Acute pain of left hip Patient Disposition: Admitted As Observation
--- NOTE | 2024-01-12 15:26 | XR_ITS ---
Patient: DONN JESSICA Facility:?[facility] Patient ID:?[id number] Site Patient ID:?[id number]. Site :?[id number] Study:?XRay-Hip W/PELVIS AP-01/12/2024 4:05:31 PM Ordering Physician:?MANDEEP LÓPEZ Final Report: Indication: Left hip pain, cellulitis Technique: Frontal view of the pelvis and frontal and lateral views of the left hip Comparison: Radiographs on September 24, 2023 Findings/impression : No acute fracture or malalignment. Postsurgical changes of left total hip arthroplasty without evidence of hardware related complication. There is some osteoarthritic degenerative changes of the right hip. No suspicious osseous lesions. The soft tissues are unremarkable. Dictated by Hollis Aragon MD @ 01/12/2024 4:23:28 PM Signed by:?Hollis Aragon MD @01/12/2024 4:23:28 PM (Electronic Signature)
--- OUTSIDE RECORDS SUMMARY | 2024-01-12 15:31 | XMS_ITS | Clinical Summary ---
Author Name Unknown Organization [facility] Address [place], [place] [address] Care Team Providers Care Licensed Mental Health Counselor Name Role Phone GarlandNori Primary Care Provider [phone] Allergies Active Allergy Reactions Criticality Noted Date Comments Codeine Hallucinations 05/03/2008 Penicillins Hives 07/02/2023 Medications Medication Sig Dispensed Refills Start Date End Date Status mv,Ca,min-folic acid-vit K1 (One-A-Day Women's 50 Plus) 400-20 mcg tab Take by mouth. 0 05/17/2022 Active cholecalciferol (Vitamin D) 1,000 unit capsule Take 1 Capsule (1,000 units) by mouth once daily. 0 05/17/2022 Active Mrohzdr-Dowjosvke-Zhd c tab Take by mouth. 0 05/17/2022 Active triamcinolone (ARISTOCORT) 0.1 % ointmentIndications:I rritant contact dermatitis due to other chemical products Apply topically to affected area(s) two times daily. To dermatitis on hands. 80 g 1 12/13/2022 Active diclofenac topical (VOLTAREN) 1 % gelIndications:Hip pain, left Apply 2 g topically to affected area(s) four times daily. 50 g 2 01/03/2023 Active lisinopriL (PRINIVIL; ZESTRIL) 10 mg tabletIndications:HTN (hypertension) TAKE 1 TABLET(10 MG) BY MOUTH EVERY DAY 90 Tablet 3 02/05/2023 Active atorvastatin (LIPITOR) 20 mg tabletIndications:Hyp erlipidemia, unspecified hyperlipidemia type TAKE 1 TABLET(20 MG) BY MOUTH AT BEDTIME 90 Tablet 2 05/04/2023 Active hydroCHLOROthiazide 12.5 mg tabletIndications:HTN (hypertension) Take 1 Tablet (12.5 mg) by mouth once daily. 90 Tablet 3 05/19/2023 Active celecoxib (CELEBREX) 200 mg capsuleIndications:Pr imary osteoarthritis of left hip Take 1 Capsule (200 mg) by mouth two times daily with meals. 60 Capsule 1 07/07/2023 Active meloxicam 15 mg tabletIndications:Jennifer pete osteoarthritis of left hip Take 1 Tablet (15 mg) by mouth once daily. 30 Tablet 2 07/09/2023 Active Active Problems Problem Noted Date Diagnosed Date HTN (hypertension) 01/03/2023 Osteopenia 06/11/2022 Overview: Bone density May 2022. Osteopenia. Recheck 3-5 years. Hyperlipidemia 05/21/2022 Pap smear for cervical cancer screening 04/22/20 Overview: Plan per provider 05/17 OV note: No f/u pap smears needed Vitamin D deficiency 08/25/2017 Resolved Problems Problem Noted Date Diagnosed Date Resolved Date Infected sebaceous cyst 06/16/201704/23 Encounters Date Type Department Care Team Description 01/12/2024 Nurse Triage [facility] [address] [place] [address] Nori Haque PA Skin Problem (Redness/swelling left thigh) from Last 3 Months Immunizations Name Administration Dates Next Due COVID-19 Vaccine Spikevax (M oderna 50mcg/0.5mL) 12YO+ 5011-6373 Formula PF 07/28/2023 COVID-19 vaccine (Moderna 10 0mcg/0.5mL) PF, MDV 08/21/2021,12/04/2020,11/06/2020 COVID-19 vaccine (Moderna 50 mcg/0.5mL) 12YO+ BIVALENT PF, MDV 07/31/2022 Hepatitis B (Adult) 05/14/1993,12/14/1992,1992 Influenza Virus, Unspecified 06/22/2017,07/04/20 15 Influenza, Inactivated AIIV4 (Age 65+ Years) Preserv Free 07/28/2023 Pneumococcal Conj 20-valent (Prevnar 20) 022 Tdap 07/20/2015 Family History Medical History Relation Name Comments Other Brother kidney failure, no known cause Asthma Father COPD Coronary artery disease Father s/p stenting Heart Disease Father Cancer Maternal Grandfather Unknown type Alzheimer's disease Maternal Grandmother Atrial fibrillation Mother Cancer Mother oral, non smoke r Other Mother Hysterectomy, n on cancerous Cancer-breast Paternal Aunt Lung cancer Paternal Grandfather [id number] Relation Name Status Comments Brother Father Alive Maternal Grandfather Maternal Grandmother Mother Paternal Aunt Paternal Grandfather Social History Tobacco Use Types Packs/Day Years Used Date Smoking Tobacco: Former Cigarettes 0.5 40 0 10/02/1982 - 10/02/2022 Smokeless Tobacco: Never Tobacco Cessation:Counseling Given: Yes Alcohol Use Standard Drinks/Week Comments No 0 (1 standard drink = 0.6 oz pure alcohol) Recovering alcoholic; 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 PHQ-2 Answer Date Recorded PHQ-2 TOTAL SCORE 0 05/19/2023 Social Connections Answer Date Recorded Frequency of Communication with Friends and Fami ly Not on file 12/22/2023 Financial Resource Strain Answer Date R ecorded Difficulty of Paying Living Expenses 3 12/13/2022 Difficulty of Paying Living Expenses Not on file 12/13/2022 Food Insecurity Answer Date Recorded Worried About Running Out of Food in the Last Ye ar 1 12/13/2022 Transportation Needs Answer Date Record ed Lack of Transportation (Medical) 1 12/13/2022 Housing Stability Answer Date Recorded Unable to Pay for Housing in the Last Year 1 12/13/2022 Sex and Gender Information Value Date Recorded Sex Assigned at Not on file Gender Identity Not on file Sexual Orientation Not on file Obstetrics History Para Term AB IAB SAB Ectopic Multiple Livin g Live Births 1 09 22 1 Date Outcome GA Total Labor Labor/2nd/3rd Weight Sex Delivery Anes PTL Vanessa A1 A5 Name Cl in Term Last Filed Vital Signs Vital Sign Reading Time Taken Comments Blood Pressure 129/83 08/04/2023 12:31 PM PLASTICS SEASONER OPERATOR Pulse 78 08/04/2023 12:31 PM PLASTICS SEASONER OPERATOR Temperature 36.8 ??C (98.2 ??F) 07/02/2023 3:04 PM CD T Respiratory Rate 16 07/02/2023 3:04 PM CDT Oxygen Saturation 96% 08/04/2023 12:31 PM PLASTICS SEASONER OPERATOR Inhaled Oxygen Concentration - - Weight 100.7 kg (222 lb) 08/04/2023 12:31 PM PLASTICS SEASONER OPERATOR Height 161.3 cm (5' 3.5) 08/04/2023 12:31 PM CS T Body Mass Index 38.71 08/04/2023 12:31 PM PLASTICS SEASONER OPERATOR Plan of Treatment Health Maintenance Due Date Last Done Comments Zoster (shingles) series for age 50+ (1 of 2) [address] (for lung CA) ag e 50-80 06/05/2023 06/05/2022 Depression screening for age 12+ 05/19/2024 05/19/2023, 05/20/2022, 05/17/2022, Additional history exists Medicare Wellness for age 65+ 05/19/2024 05/19/2023, 05/17/2022 Mammogram for age 45-75 05/22/2024 05/22/20 23, 05/17/2022, 08/21/2017, Additional history exists Influenza for age 65+ 05/23/2024 07/28/2023 , 06/22/2017, 07/04/2015 BMI (ht and wt on same day) for age 18+ 08/04/2024 08/04/2023, 05/19/2023, 05/17/2022, Additional history exists Fecal testing sDNA-FIT (Cologuard) for age 45-75 06/07/2025 06/07/2022, 06/02/2022 Tetanus booster 07/20/2025 07/20/2015 Lipids for age 45-75 05/19/2028 05/19/2023, 05/17/2022, 08/21/2017, Additional history exists Hepatitis C screening for ag e 18-79 Completed 07/20/2015 Tdap Completed 07/20/2015 Fecal testing non-DNA (FIT,FOBT,iFOBT) for age 45-75 Discontinued 08/28/2017, 08/22/2016, 07/27/2015 Pneumococcal series for age 65+ Completed DEXA/DXA scan for age 65+ Completed 06/10/2022, 01/2015 COVID-19 vaccine series Completed 07/28/20 23, 07/31/2022, 08/21/2021, Additional history exists Goals Goal Patient Goal Type Associated Problems Recent Progress Patient-Stated? Author BLOOD PRESSURE-MA INTAINS BP LESS THAN 130/80 Blood Pressure No Janice Fallon NP Procedures Procedure Name Priority Date/Time Associated Diagnosis Comments XR MAMMO VENTURA BILAT SCREEN Routine 05/22/2023 1:56 AM CDT Visit for screening mammogram LIPID PANEL W REFLEX MEASURED LDL Routine 05/19/2023 1:32 PM CDT Mixed hyperlipidemia XR DXA BONE DENSITY 2 SITES AXIAL Routine 06/10/2022 1:20 PM CDT Menopause SCAN-FECAL TEST DNA (COLOGUARD) 06/07/2022 12:[address] CHEST LOW DOSE WO CONTRAST Routine 06/05/2022 2:27 PM CDT Screening for lung cancer OCCULT BLOOD IFOBT STOOL Routine 08/28/2017 2:02 PM PLASTICS SEASONER OPERATOR Screening for colon cancer ANTI HCV Routine 07/20/2015 12:54 PM CDT Need for hepatitis C screening test from Last 3 Months or Most Recently Relevant to Health Maintenance Results * XR MAMMO VENTURA BILAT SCREEN (05/22/2023 1:56 AM CDT) Anatomical Region Laterality Modality BREASTS, Breast Left, Breast Right Bilateral Mammography Impressions 05/23/2023 2:47 PM CDT ??There is no radiographic evidence for malignancy. ??Recommend annual mammograms. MAMMOGRAM ASSESSMENT: ??ACR 1 Negative PATIENTS: You will also receive a letter with your examination results in an easy to read format. ??If you have questions about your results, please contact your referring provider. Narrative 05/23/2023 2:47 PM CDT For Patients: As a result of the Cures Act, medical imaging exams and procedure reports are released immediately into your electronic medical record. You may view this report before your referring provider. If you have questions, please contact your health care provider. XR MAMMO VENTURA BILAT SCREEN [[id number]] CLINICAL HISTORY: ??This is an asymptomatic 67 y.o. patient. INDICATION FOR EXAM: Mammogram Screening. TECHNIQUE: CC & MLO views were obtained. ??This study was evaluated with the assistance of Computer-Aided Detection. Breast Tomosynthesis was used in interpretation. COMPARISON FILM: Yes 05/17/22 [facility] 08/21/17 ?? FINDINGS: ??The breasts have scattered areas of fibroglandular density. There are no dominant masses, suspicious micro calcifications or areas of architectural distortion. Nori Haque PA MAMMO * (ABNORMAL) LIPID PANEL W REFLEX MEASURED LDL (05/19/2023 1:32 PM CDT) CHOLESTEROL,TOTAL 203(H) 100 - 199 mg/dL 05/20/2023 12:57 AM CDT [facility] Comment: Cholesterol, Total Reference Ranges Desirable <200 mg/dL Borderline 200-239 mg/dL High >=240 mg/dL TRIGLYCERIDES 100 <150 mg/dL 05/20/2023 12:57 AM CDT [facility] HDL CHOLESTEROL 80 >40 mg/dL 12:57 AM CDT [facility] NON-HDL CHOLESTEROL 123 <145 mg/dl 05/20/2023 12:57 AM CDT [facility] CHOL/HDL RATIO 2.54 <4.50 05/20/2023 12:57 AM CDT [facility] LDL CHOLESTEROL 103 <=130 mg/dL 05/20/2023 12:57 AM CDT [facility] VLDL CHOLESTEROL 20 <=30 mg/dL 05/20/2023 12:57 AM CDT [facility] PROVIDER ORDERED STATUS RANDOM 05/20/2023 12:57 AM CDT [facility] Blood BLOOD SPECIMEN / Unknown Venipuncture / Unknown 05/19/2023 1:32 PM CDT 05/19/2023 1:33 PM CDT Nori MENDOZA CHEMISTRY [facility] [address] [place] [address], * (ABNORMAL) XR DXA BONE DENSITY 2 SITES AXIAL (06/10/2022 1:20 PM CDT) Anatomical Region Laterality Modality Spine, HIPS, HIPL, HIPR Other Impressions 06/11/2022 1:08 PM CDT Osteopenia. RECOMMENDATIONS: The National Osteoporosis Foundation recommends pharmacologic treatment for patients with T-scores of -2.5 or less, patients with prior history of fragility fractures, or patients with 10-year probability of greater than 3% at hips or greater than 20% of suffering major osteoporotic fractures. Recommend continued optimization of calcium and vitamin D intake through dietary means and/or supplementation and regular exercise. Repeat scan recommended in 3-5 years. Saira Scott PA-C [facility] 06/11/2022 Narrative 06/11/2022 1:08 PM CDT For Patients: Results are automatically released to your [facility] account once available, in compliance with federal regulations. This means that you may see your results before your provider has had a chance to review them. Please allow 2-3 business days for your provider to comment on the results. XR DXA Bone Mineral Density (BMD) EXAM LOCATION: [address] [address] PATIENT NAME: Celina Haque DATE OF : 1955 EXAM DATE: 06/10/2022 REQUESTING PROVIDER: Zee Nguyen PA GENDER AT : female HEIGHT: 5' 4 (05/17/2022) WEIGHT: ??197 lb (05/17/2022) MENOPAUSAL STATUS: Postmenopausal RACE/ETHNICITY: White RISK FACTORS: Alcohol > 3 drinks/day (prior), Smoking (current), Smoking (prior) and White Race CURRENT MEDICATION FOR BONE LOSS: NONE INDICATION: Menopause COMPARISON DATE(S): 2014 DXA scans are compared to prior studies for a patient only when the two (or more) studies were performed on the same scanner. It is not possible to compare data generated on one scanner to data from another because there are not standards in DXA equipment. This applies even if the two scanners are made by the same tile setter supervisor. PROCEDURE: Dual-energy x-ray absorptiometry performed with routine technique. Reporting is completed in the form of a T-score. The T-score represents the standard deviation from peak bone mass based on young healthy adult. A Z-score is used for diagnosis in premenopausal women, and for men under the age of 50. FINDINGS: RESULT LUMBAR SPINE L1 - L4 BMD: 1.148 g/cm2 T-Score: - 0.4 Z-Score: + 0.4 Change from prior in 2015: ??Increase 0.2%. RESULTS FEMUR Left femoral neck BMD: 0.866 g/cm2 T-Score: - 1.2 Z-Score: - 0.3 Change from prior in 2015: ??Decrease 2.5%. Right femoral neck BMD: 0.865 g/cm2 T-Score: - 1.2 Z-Score: - 0.3 Change from prior in 2015: ??Decrease 4.5%. Left hip BMD: 0.888 g/cm2 T-Score: - 0.9 Z-Score: - 0.3 Change from prior in 2015: ??Decrease 3.8%. Right hip BMD: 0.876 g/cm2 T-Score: - 1.0 Z-Score: - 0.4 Change from prior in 2015: ??Decrease 4.5%. WHO criteria: Normal: T-score at or above -1 SD Osteopenia: T-score between -1.1 and -2.4 SD Osteoporosis: T-score at or below -2.5 SD FRAX RISK CALCULATION (USED FOR OSTEOPENIA ONLY): 10-year probability of major osteoporotic fracture: 8.0%. 10-year probability of hip fracture: 1.2%. Zee MENDOZA DEXA * SCAN-FECAL TEST DNA (COLOGUARD) (06/07/2022 12:00 AM CDT) Scanner OTHER * CT CHEST LOW DOSE WO CONTRAST (06/05/2022 2:27 PM CDT) Anatomical Region Laterality Modality CHEST Computed Tomogra phy 06/06/2022 6:31 AM CDT Impressions 06/06/2022 6:31 AM CDT 1. Calcified granuloma right upper lobe. Mild bilateral apical pleural thickening. 2. No significant lung or chest pathology. Lung rads category 2: Benign appearance or behavior. Recommend continued annual screening with LD CT in 12 months. Please note that all CT scans at this facility use dose modulation, iterative reconstruction, and/or weight-based dosing when appropriate to reduce radiation dose to as low as reasonably achievable. Dictated by Gelacio Sawant MD @ 06/06/2022 6:31:24 AM (Electronically Signed) Narrative 06/06/2022 6:31 AM CDT For Patients: ??As a result of the Cures Act, medical imaging exams and procedure reports are released immediately into your electronic medical record. ??You may view this report before your referring provider. ??If you have questions, please contact your health care provider. INDICATION: Lung cancer screening TECHNIQUE: CT chest without contrast. COMPARISON: None FINDINGS: Cardiovascular structures: Heart size is normal. Thoracic aorta and main pulmonary artery are normal in caliber. Minimal atherosclerotic calcification of the thoracic aorta. Mediastinum and yu: Mediastinal lymph nodes are normal in size. No sign of mass or significant adenopathy. Thyroid normal. Lungs: Mild apical pleural thickening. Calcified granuloma right upper lobe. Minimal scarring right and left CP angles, right middle lobe and lingula no suspicious pulmonary nodules, mass or consolidation. Pleura and pericardium: No effusions. Chest wall and axilla: No mass or adenopathy. Bones: Degenerative thoracic spine with moderate kyphosis. No lytic or osteoblastic skeletal lesions. Upper abdomen: Unremarkable. Procedure Note Aquiles Sawant MD - 06/06/2022 For Patients: As a result of the Cures Act, medical imagingexams and procedure reports are released immediately into your electronicmedical record. You may view this report before your referring provider.If you have questions, please contact your health care provider. INDICATION: Lung cancer screening TECHNIQUE: CT chest without contrast. COMPARISON: None FINDINGS: Cardiovascular structures: Heart size is normal. Thoracic aorta and mainpulmonary artery are normal in caliber. Minimal atheroscleroticcalcification of the thoracic aorta. Mediastinum and yu: Mediastinal lymph nodes are normal in size. No signof mass or significant adenopathy. Thyroid normal. Lungs: Mild apical pleural thickening. Calcified granuloma right upperlobe. Minimal scarring right and left CP angles, right middle lobe andlingula no suspicious pulmonary nodules, mass or consolidation. Pleura and pericardium: No effusions. Chest wall and axilla: No mass or adenopathy. Bones: Degenerative thoracic spine with moderate kyphosis. No lytic orosteoblastic skeletal lesions. Upper abdomen: Unremarkable. IMPRESSION: 1. Calcified granuloma right upper lobe. Mild bilateral apical pleuralthickening. 2. No significant lung or chest pathology. Lung rads category 2: Benign appearance or behavior. Recommend continuedannual screening with LD CT in 12 months. Please note that all CT scans at this facility use dose modulation,iterative reconstruction, and/or weight-based dosing when appropriate toreduce radiation dose to as low as reasonably achievable. Dictated by Gelacio Sawant MD @ 06/06/2022 6:31:24 AM (Electronically Signed) Zee MENDOZA CT * OCCULT BLOOD IFOBT STOOL (08/28/2017 2:02 PM PLASTICS SEASONER OPERATOR) STOOL BLOOD ,IFOBT Negative Negative 08/28/2017 2:12 PM PLASTICS SEASONER OPERATOR [facility] Stool STOOL SPECIMEN / Unknown Non-Blood / Unknown 08/28/2017 2:02 PM PLASTICS SEASONER OPERATOR 08/28/2017 2:02 PM PLASTICS SEASONER OPERATOR Janice Patton NP LABORATOR Y [facility] [address] [place] [address], * ANTI HCV (07/20/2015 12:54 PM CDT) HEPATITIS C ANTIBODY Non-Reacti ve Non-Reacti ve 07/20/2015 4:21 PM CDT [facility] Blood specimen (specimen) BLOOD SPECIMEN / Unknown Venipuncture / Unknown 07/20/2015 12:54 PM CDT 07/20/2015 12:54 PM CDT Narrative [facility] - 07/20/2015 4:21 PM CDT Antibodies to HCV not detected; does not exclude the possibility of exposure to HCV. Janice Patton CHAIR FINISHER SEND OUTS [facility] [address] [place] [address], from Last 3 Months or Most Recently Relevant to Health Maintenance Care Teams Licensed Mental Health Counselor Relationship Specialty Start Date End Date Nori Haque PA [address] [place] [address] PCP - General Physician Plant Chief 02/04/23
[2024-01-12 15:48] LABS: Lactate* 1.5 mmol/L (0.5-1.9)
[2024-01-12 16:10] LABS: Basophils Absolute Auto 0.02 K/uL (0.00-0.30); Basophils Percent Auto 0.2 % (0.0-3.0); Eosinophils Absolute Auto 0.02 K/uL (0.00-0.50); Eosinophils Percent Auto 0.2 % (0.0-7.0); Hemoglobin* 13.9 gm/dL (12.0-16.0); Immature Granulocytes Abs Auto 0.01 K/uL (0.00-0.30); Immature Granulocytes Pct Auto 0.1 %; Lymphocytes Absolute Auto 1.95 K/uL (0.90-2.90); Lymphocytes Percent Auto 20.9 % (20-44); Mean Corpuscular HGB Conc 34 gm/dL (32-36); Mean Corpuscular Hemoglobin 29 pg (26-34); Mean Corpuscular Volume 86 fL (80-100); Monocytes Percent Auto 9.6 % (0.0-11.0); Neutrophils Absolute Auto 6.44 K/uL (1.7-7.0); Platelet Count* 246 K/uL (140-440); Red Blood Count 4.77 m/uL (4.00-5.20); White Blood Count* 9.34 K/uL (4.50-11.00)
[2024-01-12 16:18] LABS: Slide Review Reflex No
[2024-01-12] MEDS: CEFAZOLIN 2 GM in 0.9 % SODIUM CHLORIDE Mini-bag 100 ML IVPB (16:44)
[2024-01-12 16:49] LABS: Erythrocyte SedimentationRate* 42 mm/hr (2-20)
[2024-01-12 18:02] LABS: Albumin* 4.5 g/dL (3.3-5.0); Chloride* 100 mmol/L (96-114); Potassium* 3.3 mmol/L (3.6-5.1); Sodium* 133 mmol/L (135-149)
[2024-01-12 18:04] LABS: Creatinine* 0.8 mg/dL (0.5-1.5); Est. Creatinine Clearance* 47.14; Estimated Glomerular Filt Rate 81 ml/min
[2024-01-12 18:05] LABS: Alanine Aminotransferase* 33 U/L (4-35); Alkaline Phosphatase* 91 U/L (40-150); Anion Gap 5 mEq/L (7-15); Aspartate Amino Transferase* 42 U/L (12-35); Bilirubin Total* 1.1 mg/dL (0.1-1.5); Blood Urea Nitrogen* 17 mg/dL (7-30); Carbon Dioxide* 28 mmol/L (20-32); Glucose* 102 mg/dL (60-115); Total Protein* 8.2 g/dL (6.0-8.3)
[2024-01-12 18:06] LABS: Calcium* 9.7 mg/dL (8.4-10.6)
[2024-01-12 18:22] LABS: Procalcitonin* 1.05 ng/mL (<0.50)
--- NOTE | 2024-01-12 18:23 | PM.IMHP1 ---
Hospitalist- H&P: HPI History of Present Illness Date Seen: 01/12/24 Chief complaint: L hip pain, swelling Narrative: ADMISSION HISTORY AND PHYSICAL - HOSPITALIST Chief Complaint: Rash with left thigh pain HPI: 68-year-old who is status post left total hip arthroplasty on August 12, 2023 presents today with increasing left lateral thigh pain, a bright red rash, and symptoms of feeling unwell over the last 3 4 days. She states she did not injure her hip in previous to this complaint has been happy with her hip replacement. She states about 7 days ago she started to get lateral left thigh and hip pain. Over the weekend this is 2-3 days prior to presentation and admission she felt unwell. She described chills without fever. She felt fatigued. She has had nausea without vomiting. She states the red rash seem to develop suddenly over the last 2 days. She was worried about the ongoing pain and possibly having an infection so she presented to the ER. Initial labs were obtained. Initial x-rays were reviewed. There was some concern about this being a possible joint infection. She was given IV Ancef, at least to cover what appeared to be a cellulitis. ER COURSE: 2 g IV Ancef, vitals, labs. CODE STATUS: FULL CODE EMERGENCY CONTACT PLAN: Solo Haque? ?Rel to [facility]? [phone]?Cell Phone? I've updated the PFSH, medications and allergies in the Expanse tabs. INVESTIGATIONS: LABS/MICRO/ECG/IMAGING CBC is reviewed. There is no elevation in her white blood cell count. Hemoglobin is normal at 13.9. Platelet count is 246. ESR is 42, CRP is 12. She is mildly hyponatremic and mildly hypokalemic. Normal renal function. Lactate is normal A1c 6.0 Procalcitonin is 1.05 Pelvis and x-ray films No acute fracture or malalignment. Postsurgical changes of left total hip arthroplasty without evidence of hardware related complication. There is some osteoarthritic degenerative changes of the right hip. No suspicious osseous lesions. The soft tissues are unremarkable. 2 blood cultures are pending REVIEW OF SYSTEMS: 12-point ROS completed with patient and negative unless otherwise stated in HPI or below. PHYSICAL EXAM: CONSTITUTIONAL: Conversive, good historian. A/O. Knows setting and context. VITAL SIGNS: see record. HEENT: Normocephalic, atraumatic. PERRL, EOMI, conjunctivae pink, no scleral icterus. Ears and nose externally normal. Pharynx normal. NECK: No JVD. No carotid bruit, no thyromegaly, no adenopathy. CHEST: Clear to auscultation bilaterally HEART: S1 and S2 normal. No harsh murmurs. Edema MUSCULOSKELETAL: No gross joint deformity or swelling. NEURO: Cranial nerves intact. Grossly intact. No asymmetric findings. SKIN: large confluent region of hyperintense erythema that covers most of the lateral left hip (left L5 dermatome, some of L4), no vesicles currently. no open skin, no drainage. SEE PICTURES IN SEPARATE NOTE. PSYCHIATRIC: Euthymic. ADMIT TO MEDSURG: FLOOR CARE DVT: Lovenox GI: PO intake Time spent: Today I spent 75 minutes seeing the patient, discussing the patient with ER staff, reviewing Expanse and EPIC notes/diagnostics, discussing the care plan with our care time that includes social work, PT/OT, pharmacy, RT, mcc and documenting my impressions and plan in the medical record. [facility] Medical History History of tobacco abuse ?Z87.891 - Personal history of nicotine dependence (ICD-10) Bilateral hip joint arthritis ?M16.0 - Bilateral primary osteoarthritis of hip (ICD-10) Hypertension ?I10 - Essential (primary) hypertension (ICD-10) Osteopenia ?M85.80 - Other specified disorders of bone density and structure, unspecified site (ICD-10) Vitamin D deficiency ?E55.9 - Vitamin D deficiency, unspecified (ICD-10) Hyperlipidemia ?E78.5 - Hyperlipidemia, unspecified (ICD-10) Surgical History Status post total hip replacement, 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) ?Z96.642 - Presence of left artificial hip joint (ICD-10) History of ?Z98.891 - History of uterine scar from previous surgery (ICD-10) Social History What is your current living situation?: I presently have a place to live Problems where you live: no known problems Problems where you live details: N/A In the past 12 months, utilities in danger of being shut off: no In past 12 months, lack of transportation kept you from medical appts, meetings, work, or getting things needed for daily living: no In the past 12 mos, have been you worried that your food would run out before you had money to buy more?: never true In the past 12 mos, the food you bought just didn't last and you didn't have money to buy more?: never true Highest level of school completed/degree received: high school graduate Smoking Status: Former smoker Do you use any of these nicotine containing products: E-Cigarettes Second hand tobacco smoke exposure: No How often do you have a drink containing alcohol: never AUDIT-C Alcohol total score: 0 Non-prescribed substance use: denies use Caffeine: Yes How often does anyone, including family, friends and others, physically hurt you: never How often does anyone, including family, friends and others, insult or talk down to you: never How often does anyone, including family, friends and others, threaten you with harm: never How often does anyone, including family, friends and others, scream or curse at you: never service: No Meds Home Medications and Allergies Home Medications Medication Instructions Recorded Confirmed Type atorvastatin 20 mg tablet 20 mg PO HS 07/21/23 01/12/24 History calcium carb-vit [id number]-[id number] 1 tab PO DAILY 07/21/23 01/12/24 History 333 mg-200 unit-133 mg-5 mg tablet hydrochlorothiazide 12.5 mg tablet 12.5 mg PO DAILY 07/21/23 01/12/24 History lisinopril 10 mg tablet 10 mg PO DAILY 07/21/23 01/12/24 History cholecalciferol (vitamin D3) 25 25 mcg PO DAILY 08/12/23 01/12/24 History mcg (1,000 unit) capsule multivitamin with minerals-folic 1 tab PO DAILY 08/12/23 01/12/24 History acid 0.4 mg tablet (One-A-Day Women's 50 Plus) diclofenac sodium 1 % topical gel 2 g topical QID 01/12/24 01/12/24 History Allergies Allergy/AdvReac Type Severity Reaction Status Date / Time codeine Allergy Mild feeling as Verified 09/24/23 10:50 if flying out of body Penicillins Allergy Hives Verified 09/24/23 10:50 Exam Const: Vital Signs, click to edit/add: Vital Signs - 24 hr 01/12/24 13:14 01/12/24 16:21 01/12/24 16:30 Temperature 97.0 F L Pulse Rate 76 72 Pulse Rate [Apical ] Pulse Rate [Right Pulse Oximeter] 68 Respiratory Rate 18 Blood Pressure [Ri ght Arm] Blood Pressure [Ri ght Upper Arm] 136/77 Pulse Oximetry 96 97 97 Oxygen Delivery Me thod Room Air 01/12/24 16:45 01/12/24 17:00 01/12/24 17:15 Temperature Pulse Rate 71 74 73 Pulse Rate [Apical ] Pulse Rate [Right Pulse Oximeter] Respiratory Rate Blood Pressure [Ri ght Arm] Blood Pressure [Ri ght Upper Arm] Pulse Oximetry 94 96 97 Oxygen Delivery Me thod 01/12/24 17:30 01/12/24 17:45 01/12/24 18:06 Temperature 98.4 F Pulse Rate 74 84 Pulse Rate [Apical ] 82 Pulse Rate [Right Pulse Oximeter] Respiratory Rate 18 Blood Pressure [Ri ght Arm] 139/96 H Blood Pressure [Ri ght Upper Arm] Pulse Oximetry 97 98 96 Oxygen Delivery Me thod Room Air Hospitalist - H&P: Result Labs Labs: Short CBC 01/12/24 Range/Units 15:40 WBC 9.34 (4.50-11.00) K/uL Hgb 13.9 (12.0-16.0) gm/dL Hct 41.0 (33.0-51.0) % Plt Count 246 (140-440) K/uL [facility] 01/12/24 15:40 Sodium 133 L Potassium 3.3 L Chloride 100 Carbon Dioxide 28 BUN 17 Creatinine 0.8 Glucose 102 Calcium 9.7 Liver Function 01/12/24 Range/Units 15:40 Total Bilirubin 1.1 (0.1-1.5) mg/dL AST 42 H (12-35) U/L ALT 33 (4-35) U/L Alkaline Phosphatase 91 (40-150) U/L Albumin 4.5 (3.3-5.0) g/dL Assessment and Plan Assessment and plan (1) Cellulitis of left leg: Problem comment: atypical but c/w acute shingles presentation with prodromal pain, dermatome distribution (left L4-L5) and intense pain. SEE PICTURES ON SEPARATE CHART NOTE. -gabapentin 100mg TID and Valtrex 1gram q8H -s/p one dose of ancef - I did not order further doses of abx -pain management, observation. Ortho aware. Day hospitalist may have to page PA to confirm if they are seeing this patient or not. Status: Acute (2) Status post total hip replacement, left: Problem comment: () 08/12/2023 Status: Acute (3) Hypertension: Problem comment: hydrochlorothiazide 12.5 mg daily, lisinopril 10 mg daily Status: Acute (4) Obesity: Problem comment: BMI 38 Status: Acute (5) Prediabetes: Problem comment: A1C 6.0 Status: Acute
[2024-01-12 18:36] LABS: Appearance Urine Clear (Clear); Bilirubin Urine Negative (Negative); Blood Urine Trace-intact (Negative); Color Urine Yellow (Yellow); Glucose Urine Negative (Negative); Ketones Urine Negative (Negative); Leukocyte Esterase Urine Negative (Negative); Nitrite Urine Negative (Negative); Protein Urine Negative (Negative); Urobilinogen Urine 0.2 (0.2-1.0)
--- NOTE | 2024-01-12 18:37 | W.PM.CROSSCO ---
Subjective Subjective Date Seen: 01/12/24 Interval history: PICTURES FROM ER PRESENTATION ON THIS DATE LEFT LATERAL THIGH, CONCERN FOR CELLULITIS VS SHINGLES (ATYPICAL) ADMITTED UNDER OBSERVATION Objective Objective Data Details:
[2024-01-12 18:57] LABS: RBC Urine 0-2 (0-2); WBC Urine 0-2 (0-5)
[2024-01-12] MEDS: ENOXAPARIN 40 MG/0.4 ML INJ SUBCUT (19:26)
[2024-01-12] MEDS: KETOROLAC 30 MG/ML inj IVP (19:26)
[2024-01-12] MEDS: PANTOPRAZOLE SODIUM 40 MG INJ IVP (19:26)
[2024-01-12] MEDS: ACETAMINOPHEN 325 MG TABLET PO (19:27)
[2024-01-12] MEDS: SODIUM CHLORIDE 0.9 % (FLUSH) 10 ML SYRINGE 5 ML IVF (19:28)
[2024-01-12] MEDS: GABAPENTIN 100 MG CAPSULE PO ×2 (19:28→23:01)
[2024-01-12] MEDS: 0.9 % SODIUM CHLORIDE 1000 ml 1,000 ML 200 ML IV (19:45)
[2024-01-12] MEDS: ATORVASTATIN 10 MG TABLET 20 MG PO (21:31)
[2024-01-12] MEDS: VALACYCLOVIR HCL 500 MG TABLET 1000 MG PO (21:33)
[2024-01-13] MEDS: ACETAMINOPHEN 325 MG TABLET PO (01:35)
[2024-01-13] MEDS: diphenhydrAMINE 25 MG CAPSULE PO (01:35)
[2024-01-13 03:00] VITALS: BP 116/76; PULSE 67; RESP 20; TEMP 36.8; O2SAT 94
--- NOTE | 2024-01-13 06:51 | PC.NURSE ---
23-07: pleasant and cooperative. Indep in room. Pt reports no pain or itchiness at end of shift. Redness to left thigh remains within outlined boarder.
[2024-01-13 07:39] VITALS: BP 168/92; PULSE 70; RESP 16; TEMP 36.6; O2SAT 97
[2024-01-13 08:36] LABS: Basophils Absolute Auto 0.02 K/uL (0.00-0.30); Basophils Percent Auto 0.3 % (0.0-3.0); Eosinophils Absolute Auto 0.07 K/uL (0.00-0.50); Eosinophils Percent Auto 1.1 % (0.0-7.0); Hematocrit 38.8 % (33.0-51.0); Hemoglobin* 13.1 gm/dL (12.0-16.0); Lymphocytes Absolute Auto 1.66 K/uL (0.90-2.90); Lymphocytes Percent Auto 26.4 % (20-44); Mean Corpuscular HGB Conc 34 gm/dL (32-36); Mean Corpuscular Hemoglobin 29 pg (26-34); Mean Corpuscular Volume 86 fL (80-100); Monocytes Percent Auto 9.2 % (0.0-11.0); Neutrophils Absolute Auto 3.95 K/uL (1.7-7.0); Platelet Count* 221 K/uL (140-440); RDW Coefficient of Variation % 14.8 % (11.5-15.5); Red Blood Count 4.54 m/uL (4.00-5.20); White Blood Count* 6.28 K/uL (4.50-11.00)
[2024-01-13 08:47] LABS: Albumin* 3.9 g/dL (3.3-5.0); Slide Review Reflex No
[2024-01-13 08:48] LABS: Chloride* 107 mmol/L (96-114); Potassium* 3.2 mmol/L (3.6-5.1); Sodium* 136 mmol/L (135-149)
[2024-01-13 08:50] LABS: Bilirubin Total* 0.7 mg/dL (0.1-1.5); Creatinine* 0.7 mg/dL (0.5-1.5); Est. Creatinine Clearance* 47.14; Estimated Glomerular Filt Rate 95 ml/min
[2024-01-13 08:51] LABS: Alanine Aminotransferase* 26 U/L (4-35); Alkaline Phosphatase* 72 U/L (40-150); Anion Gap 2 mEq/L (7-15); Aspartate Amino Transferase* 31 U/L (12-35); Blood Urea Nitrogen* 17 mg/dL (7-30); Carbon Dioxide* 27 mmol/L (20-32); Glucose* 97 mg/dL (60-115); Total Protein* 7.1 g/dL (6.0-8.3)
[2024-01-13 08:52] LABS: Calcium* 9.2 mg/dL (8.4-10.6)
[2024-01-13 08:54] LABS: C Reactive Protein* 6.9 mg/dL (0.5-1.0)
[2024-01-13 09:47] LABS: Erythrocyte SedimentationRate* 42 mm/hr (2-20)
--- NOTE | 2024-01-13 09:54 | PM.DS1 ---
DS: Providers Provider Date Seen: 01/13/24 Date of admission: 01/12/24 17:55 Primary care physician: Nori Haque PA-C Admitting Clinician: Keysha Ontiveros MD Attending Physician on discharge: Viola Siddiqui MD Date of Discharge: 01/13/24 DS: Diagnosis Discharge Diagnosis (1) Cellulitis of left leg: Status: Acute Problem details: - Erythema of LLE: ddx: atypical shingles (prodromal pain, dermatome distribution at L L4-L5), cellulitis - received 1 dose of Ancef in ED - no concern for underlying infection from previous MADAY (seen by Ortho prior to d/c) - labs reassuring, pain improved on hospital day 1 - will cover for both Shingles and Cellulitis on d/c with close PCP f/u - reviewed strict return precautions (2) Status post total hip replacement, left: Status: Acute Problem details: - () 08/12/2023 (3) Hypertension: Status: Acute Problem details: - age-appropriate control on HCTZ and Lisinopril, continued during stay and on d/c DS: Summary Hospital Course Hospital Course: Jermaine is a very pleasant patient who presented to the emergency room with left hip pain and an erythematous rash. Labs were reassuring, rash concerning for cellulitis versus atypical shingles. Patient received a dose of Ancef in the ER and Valtrex initiated. She also received low-dose gabapentin, unsure if this provided much pain relief. On hospital day 1, she described her pain as a 1/10 and requested discharge home. Labs remained stable with normal CBC, elevated ESR, CRP elevated but much improved on day of discharge. We will cover her for both shingles and cellulitis on discharge. We reviewed strict return precautions and she has a follow-up with PCP scheduled for later this week. Status at Discharge Functional status at discharge: independent ambulation Overall status at discharge: patient is back to baseline Time Spent with Patient Time attestation: Total time spent providing and/or coordinating discharge services: Time spent: Greater than 30 minutes Specific discharge activities: Medication reconciliation, patient Education, multidisciplinary team discussion Exam Narrative: Exam Narrative: GEN: Alert, sitting comfortably in bed, nontoxic in appearance HEENT: EOMIs bilaterally, no scleral icterus R: Breathing comfortably without tachypnea or wheezing Skin: Confluent erythema on left lateral thigh, no significant change from photos posted on admission. There are no vesicular lesions. Erythema has not extended past outline drawn on admission, + blanching with pressure, mildly warm, no tenderness to palpation Const: Vital Signs, click to edit/add: Vital Signs - 24 hr 01/12/24 13:14 01/12/24 16:21 01/12/24 16:30 Temperature 97.0 F L Pulse Rate 76 72 Pulse Rate [Apical ] Pulse Rate [Right Pulse Oximeter] 68 Respiratory Rate 18 Blood Pressure [Ri ght Arm] Blood Pressure [Ri ght Upper Arm] 136/77 Pulse Oximetry 96 97 97 Oxygen Delivery Me thod Room Air 01/12/24 16:45 01/12/24 17:00 01/12/24 17:15 Temperature Pulse Rate 71 74 73 Pulse Rate [Apical ] Pulse Rate [Right Pulse Oximeter] Respiratory Rate Blood Pressure [Ri ght Arm] Blood Pressure [Ri ght Upper Arm] Pulse Oximetry 94 96 97 Oxygen Delivery Me thod 01/12/24 17:30 01/12/24 17:45 01/12/24 18:06 Temperature 98.4 F Pulse Rate 74 84 Pulse Rate [Apical ] 82 Pulse Rate [Right Pulse Oximeter] Respiratory Rate 18 Blood Pressure [Ri ght Arm] 139/96 H Blood Pressure [Ri ght Upper Arm] Pulse Oximetry 97 98 96 Oxygen Delivery Il thod Room Air 01/12/24 18:32 01/12/24 18:35 01/12/24 19:45 Temperature 98.4 F 99.2 F Pulse Rate Pulse Rate [Apical ] 82 79 Pulse Rate [Right Pulse Oximeter] Respiratory Rate 18 18 18 Blood Pressure [Ri ght Arm] 139/96 H 127/83 Blood Pressure [Ri ght Upper Arm] Pulse Oximetry 96 96 95 Oxygen Delivery Il thod Room Air Room Air Room Air 01/12/24 22:59 01/12/24 23:00 01/13/24 03:00 Temperature 97.7 F 98.3 F Pulse Rate Pulse Rate [Apical ] 62 67 Pulse Rate [Right Pulse Oximeter] Respiratory Rate 20 20 20 Blood Pressure [Ri ght Arm] 135/74 116/76 Blood Pressure [Ri ght Upper Arm] Pulse Oximetry 95 94 Oxygen Delivery Il thod Room Air Room Air 01/13/24 07:39 Temperature 97.8 F Pulse Rate Pulse Rate [Apical ] 70 Pulse Rate [Right Pulse Oximeter] Respiratory Rate 16 Blood Pressure [Ri ght Arm] 168/92 H Blood Pressure [Ri ght Upper Arm] Pulse Oximetry 97 Oxygen Delivery Me thod Room Air DS: Data Data Completed and Pending Labs on day of discharge: Labs from last 24 hours 01/13/24 01/12/24 01/12/24 08:28 18:20 17:37 WBC 6.28 RBC 4.54 Hgb 13.1 Hct 38.8 MCV 86 MCH 29 MCHC 34 RDW Coeff of Kiran 14.8 Plt Count 221 Neut % (Auto) 63.0 Lymph % (Auto) 26.4 [place] % (Auto) 9.2 Eos % (Auto) 1.1 Baso % (Auto) 0.3 Neut # (Auto) 3.95 Lymph # (Auto) 1.66 [place] # (Auto) 0.60 Eos # (Auto) 0.07 Baso # (Auto) 0.02 Abs Immat Gran (auto) 0.00 Imm/Tot Granulo (auto) 0.0 ESR 42 H Sodium 136 Potassium 3.2 L Chloride 107 Carbon Dioxide 27 Anion Gap 2 L BUN 17 Creatinine 0.7 Estimated Creat Clear 47.14 Estimated GFR 95 Glucose 97 Hemoglobin A1c Lactate Calcium 9.2 Total Bilirubin 0.7 AST 31 ALT 26 Alkaline Phosphatase 72 C-Reactive Protein 6.9 H Total Protein 7.1 Albumin 3.9 Procalcitonin Urine Color Yellow Urine Appearance Clear Urine pH 7.0 Ur Specific [place] 1.010 Urine Protein Negative Urine Glucose (UA) Negative Urine Ketones Negative Urine Blood Trace-intact A Urine Nitrite Negative Urine Bilirubin Negative Urine Urobilinogen 0.2 Ur Leukocyte Esterase Negative Urine RBC 0-2 Urine WBC 0-2 Ur Squamous Epith Cells None Urine Bacteria None Lab Acknowledgement Test Added 01/12/24 01/12/24 15:40 15:40 WBC 9.34 RBC 4.77 Hgb 13.9 Hct 41.0 MCV 86 MCH 29 MCHC 34 RDW Coeff of Kiran 15.0 Plt Count 246 Neut % (Auto) 69.0 Lymph % (Auto) 20.9 [place] % (Auto) 9.6 Eos % (Auto) 0.2 Baso % (Auto) 0.2 Neut # (Auto) 6.44 Lymph # (Auto) 1.95 [place] # (Auto) 0.90 Eos # (Auto) 0.02 Baso # (Auto) 0.02 Abs Immat Gran (auto) 0.01 Imm/Tot Granulo (auto) 0.1 ESR 42 H Sodium 133 L Potassium 3.3 L Chloride 100 Carbon Dioxide 28 Anion Gap 5 L BUN 17 Creatinine 0.8 Estimated Creat Clear 47.14 Estimated GFR 81 Glucose 102 Hemoglobin A1c 6.0 H Lactate 1.5 Calcium 9.7 Total Bilirubin 1.1 AST 42 H ALT 33 Alkaline Phosphatase 91 C-Reactive Protein 12.0 H Total Protein 8.2 Albumin 4.5 Procalcitonin Cancelled 1.05 H Urine Color Urine Appearance Urine pH Ur Specific [place] Urine Protein Urine Glucose (UA) Urine Ketones Urine Blood Urine Nitrite Urine Bilirubin Urine Urobilinogen Ur Leukocyte Esterase Urine RBC Urine WBC Ur Squamous Epith Cells Urine Bacteria Lab Acknowledgement Preliminary micro results at discharge 01/12/24 18:20 Urine Culture - Preliminary Urine,Clean Catch Culture in Progress Discharge Plan Discharge Disposition: Home, Self-Care Date of Admission: 01/12/24 17:55 Attending Provider on Discharge: Viola Siddiqui Primary Care Provider: Nori Haque Condition: Improved Anticipated Discharge Date/Time: 01/13/24 09:45 Discharge Medications: New valacyclovir [Valtrex] 500 mg Tablet 1,000 mg PO TID 7 Days Qty: 42 0RF diphenhydramine HCl 25 mg Capsule 25 mg PO Q6H PRNQty: 30 3RF cephalexin 500 mg capsule 500 mg PO Q8H 7 Days Qty: 21 0RF Continued lisinopril 10 mg tablet 10 mg PO DAILY hydrochlorothiazide 12.5 mg tablet 12.5 mg PO DAILY atorvastatin 20 mg tablet 20 mg PO HS calcium carb-D3-mag [id number] [phone] [id number]-mg tablet 1 tab PO DAILY Rx Instructions: administer with a meal diclofenac sodium 1 % gel 2 g topical QID multivit with min-folic acid [One-A-Day Women's 50 Plus] 0.4 mg tablet 1 tab PO DAILY cholecalciferol (vitamin D3) 25 mcg (1,000 unit) capsule 25 mcg PO DAILY Discharge Orders: Discharge Order (Routine); Ordered 01/13/24 Ordered By: Viola Siddiqui Patient Education: Cephalexin (By mouth), Diphenhydramine (By mouth), Valacyclovir (By mouth) Additional Instructions: At [facility]: 1. Valtrex (this is an antiviral that you take 3 times/day for shingles) 2. Cephalexin (antibiotic; the same as you got in the ER, take 3 times/day with the Valtrex for possible bacterial infection) 3. Benadryl (as needed) Tylenol and Ibuprofen alternating for pain. If you start getting blistering on the leg, cover with ABD and Boubacar wrap (or paper tape). See Nori for followup as scheduled. If you have any worsening leg symptoms, fever, significantly increased pain, you must return to ED. Activity Level: Activity as Tolerated Discharge Diet: Regular Follow Up Appointments: Nori Haque PA-C [Primary Care Provider] - 01/14/24 11:35 am ( an appt for Jermaine with Nori Haque (PCP)[facility] d/c followup. Was not available or Friday this week. If this does not work for you please call clinic and reschedule) Forms: [facility] Info Instructions
[2024-01-13] MEDS: MULTIVITAMIN/MINERALS 1 TABLET 1 TAB PO (09:57)
[2024-01-13] MEDS: hydroCHLOROthiazide 12.5 MG CAPSULE PO (09:58)
[2024-01-13] MEDS: lisinopriL 10 MG TABLET PO (09:58)
[2024-01-13] MEDS: GABAPENTIN 100 MG CAPSULE PO (09:58)
[2024-01-13] MEDS: SODIUM CHLORIDE 0.9 % (FLUSH) 10 ML SYRINGE 5 ML IVF (09:59)
[2024-01-13] MEDS: VALACYCLOVIR HCL 500 MG TABLET 1000 MG PO (09:59)
--- NOTE | 2024-01-13 11:34 | PC.NURSE ---
shift note: pt denies pain in lt thigh. area to lt upper thigh red and warm to touch. area of redness marked with no increase beyond markings. pt afeb with stable VSS
--- NOTE | 2024-01-13 11:39 | REH.OT ---
Per PT, OT evaluation not needed as pt. is at baseline, ambulating independently.
[2024-01-13] MEDS: POTASSIUM BICARB 25 MEQ EFFERVESCENT TAB 50 MEQ PO (12:15)
== END 2024-01-13 12:37 | disposition home or self-care (01) ==
LOC: ED 17:39 → MEDSURG 18:00
PROVIDERS: Family Medicine; Admitting Provider Family Medicine; Emergency Provider Family Medicine; PCP Student in an Organized Health Care Education/Training Program; Visit Provider Family Medicine
DX: L03.116 Cellulitis of left lower limb (principal); Z96.642 Presence of left artificial hip joint; I10 Essential (primary) hypertension; E66.9 Obesity, unspecified; R73.03 Prediabetes
CPT/HCPCS: 36415; 73502; 80053; 81001; 83036; 83605; 84145; 85025; 85651; 86140; 87040; 87086; 94761; 97110; 97161; 99284; 99285; A9153; A9270; C9113; G0378; J0690; J1650; J1885; J7030

== ENCOUNTER 2024-11-16 08:10 | Outpatient (CLI) | payer OTHER, MEDICARE, SELFPAY | END 2024-11-16 08:11 | disposition home or self-care (01) | LOC: AMB 11-17 10:50 | PROVIDERS: PCP Student in an Organized Health Care Education/Training Program; Visit Provider Emergency Medicine | DX: S79.911A Unspecified injury of right hip, initial encounter (principal); S49.91XA Unspecified injury of right shoulder and upper arm, initial encounter; V48.0XXA Car driver injured in noncollision transport accident in nontraffic accident, initial encounter; Y92.410 Unspecified street and highway as the place of occurrence of the external cause | CPT/HCPCS: A0425; A0427 ==

== ENCOUNTER 2024-11-16 08:51 | Emergency (ER) | payer MEDICARE, OTHER, SELFPAY ==
[2024-11-16] VITALS (9 sets, daily range): BP systolic 134–147; BP diastolic 77–95; PULSE 70–91; RESP 17–24; TEMP 36.2; O2SAT 89–97
[2024-11-16 09:17] LABS: Basophils Absolute Auto 0.01 K/uL (0.00-0.30); Basophils Percent Auto 0.1 % (0.0-3.0); Eosinophils Absolute Auto 0.12 K/uL (0.00-0.50); Eosinophils Percent Auto 1.8 % (0.0-7.0); Hematocrit* 40.7 % (33.0-51.0); Hemoglobin* 13.7 gm/dL (12.0-16.0); Immature Granulocytes Abs Auto 0.12 K/uL (0.00-0.30); Immature Granulocytes Pct Auto 1.8 %; Lymphocytes Absolute Auto 1.82 K/uL (0.90-2.90); Mean Corpuscular HGB Conc 34 gm/dL (32-36); Mean Corpuscular Hemoglobin 30 pg (26-34); Mean Corpuscular Volume 90 fL (80-100); Monocytes Percent Auto 7.6 % (0.0-11.0); Neutrophils Absolute Auto 4.17 K/uL (1.7-7.0); Neutrophils Percent Auto 61.7 % (42.0-72.0); Platelet Count* 235 K/uL (140-440); RDW Coefficient of Variation % 13.1 % (11.5-15.5); Red Blood Count* 4.51 m/uL (4.00-5.20); White Blood Count* 6.75 K/uL (4.50-11.00)
[2024-11-16] MEDS: TRANEXAMIC ACID 100 MG/ML INJ 2000 MG IV (09:18)
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
--- OUTSIDE RECORDS SUMMARY | 2024-11-16 09:23 | XMS_ITS | Clinical Summary ---
Author Organization [facility] Address [address] [place] [id number] Care Team Providers Care Loans Consultant Name Role Phone GarlandNori Primary Care Provider [phone] Allergies Active Allergy Reactions Criticality Noted Date Comments Codeine Hallucinations 05/03/2008 Penicillins Hives 07/02/2023 Medications mv,Ca,min-folic acid-vit K1 (One-A-Day Women's 50 Plus) 400-20 mcg tab Take by mouth. 0 05/17/20 22 Active cholecalciferol (Vitamin D) 1,000 unit capsule Take 1 Capsule (1,000 units) by mouth once daily. 0 05/17/20 22 Active Calcium-Magnesium- Zinc tab Take by mouth. 0 05/17/20 22 Active triamcinolone (ARISTOCORT) 0.1 % ointmentIndication s:Irritant contact dermatitis due to other chemical products Apply topically to affected area(s) two times daily. To dermatitis on hands. 80 g 1 12/14/19 23 Active hydroCHLOROthiazid e 12.5 mg tabletIndications: HTN (hypertension) Take 1 Tablet (12.5 mg) by mouth once daily. 90 Tablet 3 06/02/20 24 Active lisinopriL (PRINIVIL; ZESTRIL) 10 mg tabletIndications: HTN (hypertension) Take 1 Tablet (10 mg) by mouth once daily. 90 Tablet 3 06/02/20 24 Active atorvastatin (LIPITOR) 20 mg tabletIndications: Mixed hyperlipidemia Take 1 Tablet (20 mg) by mouth at bedtime. 90 Tablet 1 11/06/19 25 Active atorvastatin (LIPITOR) 20 mg tabletIndications: Mixed hyperlipidemia Take 1 Tablet (20 mg) by mouth at bedtime. 90 Tablet 3 06/02/20 24 025 Discontin ued(*Avai lability/ Formulary change/Co st of medicatio n) Active Problems Problem Noted Date Diagnosed Date HTN (hypertension) 01/03/2023 Osteopenia 06/11/2022 Overview (06/11/2022): Bone density May 2022. Osteopenia. Recheck 3-5 years. Hyperlipidemia 05/21/2022 Pap smear for cervical cancer screening 04/22/20 Overview (07/10/2022): Plan per provider 05/17 OV note: No f/u pap smears needed Vitamin D deficiency 08/25/2017 Resolved Problems Problem Noted Date Diagnosed Date Resolved Date Infected sebaceous cyst 06/16/201704/23 Encounters Date Type Department Care Team Description 11/04/2024 Refill [facility] [address] [place] [address] Nori Haque PA Refill Request (Atorvastatin) from Last 3 Months Immunizations Name Administration Dates Next Due COVID-19 VACCINE SPIKEVAX (M ODERNA 50MCG/0.5ML) 12YO+ PFS 07/28/2023 COVID-19 vaccine (Moderna 10 0mcg/0.5mL) PF, MDV 08/21/2021,12/04/2020,11/06/2020 COVID-19 vaccine (Moderna 50 mcg/0.5mL) 12YO+ BIVALENT PF, MDV 07/31/2022 Hepatitis B (Adult) 05/14/1993,12/14/1992,1992 Influenza Virus, Unspecified 06/22/2017,07/04/20 15 Influenza, Inactivated AIIV4 (Age 65+ Years) Preserv Free 07/28/2023 Influenza, Inactivated IIV3 (Age 65+ Years) Preserv Free 06/02/2024 Pneumococcal Conj 20-valent (Prevnar 20) 022 Tdap [...] Answer Date Recorded PHQ-2 TOTAL SCORE 0 06/02/2024 Social Connections Answer Date Recorded Do you often feel lonely or isolated from those around you? 0 01/14/2024 Financial Resource Strain Answer Date R ecorded Difficulty of Paying Living Expenses 3 01/14/2024 Difficulty of Paying Living Expenses Not on file 01/14/2024 Food Insecurity Answer Date Recorded Do you worry your food will run out before you are able to buy more? 1 01/14/2024 Transportation Needs Answer Date Record ed Does lack of transportation keep you from medica l appointments? 1 01/14/2024 Does lack of transportation keep you from work, meetings or getting things that you need? 1 01/14/2024 Housing Stability Answer Date Recorded What is your housing situation today? 1 01/14/2024 Utilities Answer Date Recorded Do you have trouble paying f or utilities (for example, heat, electricity, water, phone)? 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 Not on file Not on file Not on john e Not on file Not on file Not on file Not on file Obstetrics History Para Term AB IAB SAB Ectopic Multiple Livin g Live Births 1 09 22 1 Date Outcome GA Total Labor Labor/2nd/3rd Weight Sex Type Anes PTL Vanessa A1 A5 Name Clin Term Last Filed Vital Signs Vital Sign Reading Time Taken Comments Blood Pressure 133/79 06/02/2024 8:24 AM CDT Pulse 71 06/02/2024 8:24 AM CDT Temperature 36.8 C (98.2 F) 07/02/2023 3:04 PM CDT Respiratory Rate 16 07/02/2023 3:04 PM CDT Oxygen Saturation 95% 06/02/2024 8:24 AM CDT Inhaled Oxygen Concentration - - Weight 101.1 kg (222 lb 12.8 oz) 06/02/2024 8:24 AM CDT Height 163.5 cm (5' 4.37) 06/02/2024 8:24 AM CD T Body Mass Index 37.81 06/02/2024 8:24 AM CDT Plan of Treatment Health Maintenance Due Date Last Done Comments Zoster (shingles) series for age 50+ (1 of 2) 2006 COVID-19 vaccine series ( season) 2024 07/28/2023, 07/31/2022, 08/21/2021, Additional history exists BMI (ht and wt on same day) for age 18+ 06/02/2025 06/02/2024, 08/04/2023, 05/19/2023, Additional history exists Depression screening for age 12+ 06/02/2025 06/02/2024, 05/19/2023, 05/20/2022, Additional history exists Medicare Wellness for age 65+ 06/03/2025, 05/19/2023, 05/17/2022 Mammogram for age 45-75 06/04/2025 06/04/20 24, 05/22/2023, 05/17/2022, Additional history exists Fecal testing sDNA-FIT (Bath guard) for age 45-75 06/07/2025 06/07/2022, 06/02/[address] (for lung CA) ag e 50-80 06/09/2025 06/09/2024, 06/05/2022 Tetanus booster 07/20/2025 07/20/2015 Lipids for age 45-75 06/02/2029 06/02/2024, 05/19/2023, 05/17/2022, Additional history exists RSV vaccine for adults or (1 - 1-dose 75+ series) 2031 Hepatitis C screening for ag e 18-79 Completed 07/20/2015 Tdap Completed 07/20/2015 Pneumococcal series for age 50+ Completed DEXA/DXA scan for age 65+ Completed 06/10/2022, 01/2015 Influenza for age 65+ Completed 06/02/2024 , 07/28/2023, 06/22/2017, Additional history exists Goals Goal Patient Goal Type Associated Problems Recent Progress Patient-Stated? Author BLOOD PRESSURE-MA INTAINS BP LESS THAN 130/80 Blood Pressure No Janice Fallon NP Procedures Procedure Name Priority Date/Time Associated Diagnosis Comments CT CHEST SCREENING LOW DOSE WO CONTRAST Routine 06/09/2024 7:40 AM CDT Encounter for screening for lung cancer Personal history of nicotine dependence XR MAMMO VENTURA BILAT SCREEN Routine 06/04/2024 8:38 AM CDT Encounter for screening mammogram for malignant neoplasm of breast LIPID PANEL W REFLEX MEASURED LDL Routine 06/02/2024 9:11 AM CDT Mixed hyperlipidemia XR DXA BONE DENSITY 2 SITES AXIAL Routine 06/10/2022 1:20 PM CDT Menopause SCAN-FECAL TEST DNA (COLOGUARD) 06/07/2022 12:00 AM CDT ANTI HCV Routine 07/20/2015 12:54 PM CDT Need for hepatitis C screening test from Last 3 Months or Most Recently Relevant to Health Maintenance Results * CT CHEST SCREENING LOW DOSE WO CONTRAST [[id number]] -- Criteria: must meet ALL: Age 50-80, current smoker or quit within the last 15 years, AND 20+ pack-year history (06/09/2024 7:40 AM CDT) Anatomical Region Laterality Modality Computed Tomogra phy Impressions 06/10/2024 2:06 PM CDT Negative for lung cancer screening purposes. LUNG-RADS CATEGORY: 2: Benign. RADIOLOGIST RECOMMENDATION: Continue annual screening with low-dose CT chest in 12 months. Please note that all CT scans at this facility use dose modulation, iterative reconstruction and/or weight-based dosing when appropriate to reduce radiation dose to as low as reasonably achievable. Dictated by: Jorge Brown MD @06/09/2024 8:37:31 PM/[facility] Narrative 06/10/2024 2:06 PM CDT For Patients: As a result of the Cures Act, medical imaging exams and procedure reports are released immediately into your electronic medical record. You may view this report before your referring provider. If you have questions, please contact your health care provider. CT CHEST SCREENING LOW-DOSE WITHOUT CONTRAST 06/09/2024 INDICATION: Lung cancer screening. History of smoking. High risk patient with greater than 20 pack-year smoking history. TECHNIQUE: Low-dose lung cancer screening non-contrast CT chest. Dose reduction techniques were used. COMPARISON: 06/05/2022. FINDINGS: NODULES: Possible 3 millimeter nodule LEFT lower lobe, series 5, image 76. Calcified nodule in the RIGHT middle lobe measures 3.3 cm. LUNGS AND PLEURA: Mild biapical pleural parenchymal scarring. Emphysema. MEDIASTINUM: Visualized thyroid normal. No enlarged lymph nodes. CORONARY ARTERY CALCIFICATION: None. LIMITED UPPER ABDOMEN: Upper abdominal midline hernia is suspected containing fat measuring approximally 4.8 cm. Atherosclerotic changes. Incidental densities within the distal stomach and proximal duodenum. MUSCULOSKELETAL: No fracture. Degenerative disc disease. us Nori MENDOZA CT Final Res ult * XR MAMMO VENTURA BILAT SCREEN (06/04/2024 8:38 AM CDT) Anatomical Region Laterality Modality BREASTS, Breast Left, Breast Right Bilateral Mammography Impressions 06/04/2024 3:09 PM CDT There is no radiographic evidence for malignancy. Recommend annual mammograms. MAMMOGRAM ASSESSMENT: ACR 1 Negative PATIENTS: You will also receive a letter with your examination results in an easy to read format. If you have questions about your results, please contact your referring provider. Narrative 06/04/2024 3:09 PM CDT For Patients: As a result of the Cures Act, medical imaging exams and procedure reports are released immediately into your electronic medical record. You may view this report before your referring provider. If you have questions, please contact your health care provider. XR MAMMO VENTURA BILAT SCREEN [[id number]] CLINICAL HISTORY: This is an asymptomatic 68 y.o. patient. INDICATION FOR EXAM: Mammogram Screening. TECHNIQUE: CC & MLO views were obtained. This study was evaluated with the assistance of Computer-Aided Detection. Breast Tomosynthesis was used in interpretation. COMPARISON FILM: Yes 05/22/23 [facility] 05/17/22 [facility] [employer] FINDINGS: There are scattered areas of fibroglandular density. There are no dominant masses, suspicious micro calcifications or areas of architectural distortion. us Nori Haque PA MAMMO Final Res ult * (ABNORMAL) LIPID PANEL W REFLEX MEASURED LDL (06/02/2024 9:11 AM CDT) CHOLESTEROL,TOTAL 203(H) 100 - 199 mg/dL 06/02/2024 6:33 PM CDT [facility] Comment: Cholesterol, Total Reference Ranges Desirable <200 mg/dL Borderline 200-239 mg/dL High >=240 mg/dL TRIGLYCERIDES 114 <150 mg/dL 06/02/2024 6:33 PM CDT [facility] HDL CHOLESTEROL 82 >40 mg/dL 6:33 PM CDT [facility] NON-HDL CHOLESTEROL 121 <145 mg/dl 06/02/2024 6:33 PM CDT [facility] CHOL/HDL RATIO 2.48 <4.50 06/02/2024 6:33 PM CDT [facility] LDL CHOLESTEROL 98 <=130 mg/dL 06/02/2024 6:33 PM CDT [facility] VLDL CHOLESTEROL 23 <=30 mg/dL 06/02/2024 6:33 PM CDT [facility] PROVIDER ORDERED STATUS RANDOM 06/02/2024 6:33 PM CDT [facility] Blood BLOOD SPECIMEN / Unknown Venipuncture / Unknown 06/02/2024 9:11 AM CDT 06/02/2024 9:11 AM CDT us Nori MENDOZA CHEMISTRY Final Res ult [facility] [address] [place] [address], * (ABNORMAL) XR DXA BONE DENSITY 2 [...] recommended in 3-5 years. Saira Scott PA-C [facility] 06/11/2022 Narrative 06/11/2022 1:08 PM CDT For Patients: Results are automatically released to your [facility] ([employer]) account once available, in compliance with federal regulations. This means that you may see your results before your provider has had a chance to review them. Please allow 2-3 business days for your provider to comment on the results. XR DXA Bone Mineral Density (BMD) EXAM LOCATION: [address] [address] PATIENT NAME: Celina Haque DATE OF : 1955 EXAM DATE: 06/10/2022 REQUESTING PROVIDER: Zee Nguyen PA GENDER AT : female HEIGHT: 5' 4 (05/17/2022) WEIGHT: 197 lb (05/17/2022) MENOPAUSAL STATUS: Postmenopausal RACE/ETHNICITY: White [...] two scanners are made by the same delivery sales worker. PROCEDURE: Dual-energy x-ray absorptiometry performed with routine [...] Z-Score: + 0.4 Change from prior in 2014: Increase 0.2%. RESULTS FEMUR Left femoral neck BMD: 0.866 g/cm2 T-Score: - 1.2 Z-Score: - 0.3 Change from prior in 2014: Decrease 2.5%. Right femoral neck BMD: 0.865 g/cm2 T-Score: - 1.2 Z-Score: - 0.3 Change from prior in 2014: Decrease 4.5%. Left hip BMD: 0.888 g/cm2 T-Score: - 0.9 Z-Score: - 0.3 Change from prior in 2014: Decrease 3.8%. Right hip BMD: 0.876 g/cm2 T-Score: - 1.0 Z-Score: - 0.4 Change from prior in 2014: Decrease 4.5%. WHO criteria: Normal: T-score at or above -1 SD Osteopenia: T-score between -1.1 and -2.4 SD Osteoporosis: T-score at or below -2.5 SD FRAX RISK CALCULATION (USED FOR OSTEOPENIA ONLY): 10-year probability of major osteoporotic fracture: 8.0%. 10-year probability of hip fracture: 1.2%. us Zee MENDOZA DEXA Final Resu lt * SCAN-FECAL TEST DNA (COLOGUARD) (06/07/2022 12:00 AM CDT) us Scanner OTHER Final Result * ANTI HCV (07/20/2015 12:54 PM CDT) HEPATITIS C ANTIBODY Non-Reacti ve Non-Reacti ve 07/20/2015 4:21 PM CDT [facility] Blood specimen (specimen) BLOOD SPECIMEN / Unknown Venipuncture / Unknown 07/20/2015 12:54 PM CDT 07/20/2015 12:54 PM CDT Narrative [facility] - 07/20/2015 4:21 PM CDT Antibodies to HCV not detected; does not exclude the possibility of exposure to HCV. us Janice Patton NP SEND OUTS F inal Result [facility] 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
[2024-11-16 09:27] LABS: Slide Review Reflex No
[2024-11-16 09:30] LABS: Chloride* 100 mmol/L (96-114)
[2024-11-16 09:31] LABS: Albumin* 4.4 g/dL (3.3-5.0); Potassium* 3.6 mmol/L (3.6-5.1); Sodium* 134 mmol/L (135-149)
[2024-11-16 09:33] LABS: INR 0.93 (0.91-1.10); Prothrombin Time 13.2 Seconds
[2024-11-16 09:34] LABS: Alanine Aminotransferase* 28 U/L (4-35); Alkaline Phosphatase* 83 U/L (40-150); Anion Gap 9 mEq/L (7-15); Aspartate Amino Transferase* 33 U/L (12-35); Bilirubin Total* 0.5 mg/dL (0.1-1.5); Blood Urea Nitrogen* 13 mg/dL (7-30); Calcium* 9.1 mg/dL (8.4-10.6); Carbon Dioxide* 25 mmol/L (20-32); Creatinine* 0.7 mg/dL (0.5-1.5); Estimated Glomerular Filt Rate 94 ml/min; Glucose* 124 mg/dL (60-115)
[2024-11-16 09:49] LABS: Ethanol* < 0.01 % (0.01-0.03); Troponin I* < 0.01 ng/mL (0.01-0.04)
== END 2024-11-16 10:22 | disposition other institution (70) ==
PROVIDERS: Emergency Provider Emergency Medicine; PCP Student in an Organized Health Care Education/Training Program
DX: S22.31XA Fracture of one rib, right side, initial encounter for closed fracture (principal); K66.1 Hemoperitoneum; V49.3XXA Car occupant (driver) (passenger) injured in unspecified nontraffic accident, initial encounter; R06.89 Other abnormalities of breathing
CPT/HCPCS: 36415; 71045; 76604; 76705; 80053; 82077; 84484; 85025; 85610; 86850; 86900; 86901; 93005; 93308; 94761; 99285; 99291; G0390

== ENCOUNTER 2024-11-16 09:23 | Outpatient (CLI) | payer OTHER, MEDICARE, SELFPAY | END 2024-11-16 09:24 | disposition home or self-care (01) | LOC: AMB 11-17 11:01 | PROVIDERS: PCP Student in an Organized Health Care Education/Training Program; Visit Provider Emergency Medicine | DX: K66.1 Hemoperitoneum (principal); R09.02 Hypoxemia; S22.49XA Multiple fractures of ribs, unspecified side, initial encounter for closed fracture; S42.001A Fracture of unspecified part of right clavicle, initial encounter for closed fracture | CPT/HCPCS: A0425; A0427 ==

== ENCOUNTER 2024-11-18 20:06 | Outpatient (CLI) | payer OTHER, MEDICARE, SELFPAY | END 2024-11-18 20:07 | disposition home or self-care (01) | LOC: AMB 11-19 11:37 | PROVIDERS: Visit Provider Family Medicine | DX: S29.9XXA Unspecified injury of thorax, initial encounter (principal); R42 Dizziness and giddiness; W18.30XA Fall on same level, unspecified, initial encounter; Y92.000 Kitchen of unspecified non-institutional (private) residence as the place of occurrence of the external cause | CPT/HCPCS: A0425; A0427 ==

== ENCOUNTER 2025-08-22 09:55 | Emergency (ER) | payer MEDICARE, OTHER, SELFPAY ==
--- OUTSIDE RECORDS SUMMARY | 2025-08-22 10:05 | XMS_ITS | Clinical Summary ---
Author Organization [facility] Address [address] [place] [id number] Care Team Providers Care Manufacturing Executive Name Role Phone GarlandNori Primary Care Provider [phone] Allergies Active Allergy Reactions Criticality Noted Date Comments Codeine Hallucinations 05/03/2008 Penicillins Hives 07/02/2023 Medications mv,Ca,min-folic acid-vit K1 (One-A-Day Women's 50 Plus) 400-20 mcg tab Take by mouth. 0 2 Active cholecalciferol (Vitamin D) 1,000 unit capsule Take 1 Capsule (1,000 units) by mouth once daily. 0 2 Active Calcium-Magnesium- Zinc tab Take by mouth. 0 2 Active triamcinolone (ARISTOCORT) 0.1 % ointmentIndication s:Irritant contact dermatitis due to other chemical products Apply topically to affected area(s) two times daily. To dermatitis on hands. 80 g 1 3 Active atorvastatin (LIPITOR) 20 mg tabletIndications: Mixed hyperlipidemia Take 1 Tablet (20 mg) by mouth at bedtime. 90 Tablet 3 5 Active hydroCHLOROthiazid e 12.5 mg tabletIndications: HTN (hypertension) Take 1 Tablet (12.5 mg) by mouth once daily. 90 Tablet 3 5 Active lisinopriL (PRINIVIL; ZESTRIL) 10 mg tabletIndications: HTN (hypertension) Take 1 Tablet (10 mg) by mouth once daily. 90 Tablet 3 5 Active Active Problems Problem Noted Date Diagnosed [...] Encounters Date Type Department Care Team Description 06/13/2025 9:30 AM CDT Ancillary Procedure [address] [address] 06/13/2025 9:00 AM CDT Ancillary Procedure [address] [address] 06/13/[address] [address] Nori Haque PA Results (/) 06/13/2025 Travel 06/11/[address] [address] Nori Haque PA Refill Request (Lisinopril, Hydrochlorothiazide) 06/07/[address] [address] Nori Haque PA Refill Request (Atorvastatin) 06/06/2025 8:00 AM CDT Ancillary Procedure [address] [address] 06/06/2025 7:00 AM CDT Office Visit [address] [address] Nori Haque PA Medicare ANNUAL (subsequent) Visit (69 year old; feels wax is built up in right ear, wanting cleaned); Immunization/Injecti on 06/06/2025 Travel from Last 3 Months Immunizations Immunization Administration Dates Next Due COVID-19 VACCINE SPIKEVAX (M ODERNA 50MCG/0.5ML) 12YO+ PFS 07/28/2023 COVID-19 vaccine (Moderna 10 0mcg/0.5mL) PF, MDV 08/21/2021,12/04/2020,11/06/2020 COVID-19 vaccine (Moderna 50 mcg/0.5mL) 12YO+ BIVALENT PF, MDV 07/31/2022 Hepatitis B (Adult) 05/14/1993,12/14/1992,1992 Influenza Virus, Unspecified 06/22/2017,07/04/20 15 Influenza, Inactivated AIIV4 (Age 65+ Years) Preserv Free 07/28/2023 Influenza, Inactivated IIV3 (Age 65+ Years) Preserv Free 06/06/2025,06/02/2024 Pneumococcal Conj 20-valent (Prevnar 20) 022 Tdap 07/20/2015 Zoster (Shingrix-RZV, recombinant) 09/01/2024, Family History Medical History Relation Name Comments [...] Answer Date Recorded PHQ-2 TOTAL SCORE 0 06/06/2025 Social Connections Answer Date Recorded Do you often feel lonely or isolated from those around you? 0 06/06/2025 Alcohol Use Answer Date Recorded How often do you have a drink containing alcohol ? 0 06/06/2025 How many drinks containing a lcohol do you have on a typical day when you are drinking? 0 06/06/2025 How often do you have five or more drinks on one occasion? 0 06/06/2025 Financial Resource Strain Answer Date R ecorded Difficulty of Paying Living Expenses 3 06/06/2025 Difficulty of Paying Living Expenses Not on file 06/06/2025 Food Insecurity Answer Date Recorded Do you worry your food will run out before you are able to buy more? 1 06/06/2025 Transportation Needs Answer Date Record ed Does lack of transportation keep you from medica l appointments? 1 06/06/2025 Does lack of transportation keep you from work, meetings or getting things that you need? 1 06/06/2025 Housing Stability Answer Date Recorded What is your housing situation today? 1 06/06/2025 Utilities Answer Date Recorded Do you have trouble paying f or utilities (for example, heat, electricity, water, phone)? 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 Not on file Not on file Not on john e Not on file Not on file Not on file Not on file Obstetrics History Para Term AB IAB SAB Ectopic Multiple Livin g Live Births 1 1 1 1 Date Outcome GA Total Labor Labor/2nd/3rd Weight Sex Type Anes PTL Vanessa A1 A5 Name Clin Term Last Filed Vital Signs Vital Sign Reading Time Taken Comments Blood Pressure 126/82 06/06/2025 7:08 AM CDT Pulse 76 06/06/2025 7:08 AM CDT Temperature 36.8 C (98.2 F) 07/02/2023 3:04 PM CDT Respiratory Rate 16 07/02/2023 3:04 PM CDT Oxygen Saturation 95% 06/02/2024 8:24 AM CDT Inhaled Oxygen Concentration - - Weight 98.4 kg (217 lb) 06/06/2025 7:08 AM CDT Height 162.8 cm (5' 4.09) 06/06/2025 7:08 AM CD T Body Mass Index 37.14 06/06/2025 7:08 AM CDT Plan of Treatment Upcoming Encounters Date Type Department Care Team (Late st Contact Info) Description 10/14/2025 10:40 AM HUMANITIES PROFESSOR Office Visit [facility] [address] [place] [address] Solo Salazar MD [address] [place] [address] Health Maintenance Due Date Last Done Comments COVID-19 vaccine series ( season) 2025 06/04/2024, 07/28/2023, 07/31/2022, Additional history exists Tetanus booster 07/20/2025 07/20/2015 BMI (ht and wt on same day) for age 18+ 06/06/2026 06/06/2025, 06/02/2024, 08/04/2023, Additional history exists Depression screening for age 12+ 06/06/2026 06/06/2025, 06/02/2024, 05/19/2023, Additional history exists Mammogram for age 45-75 06/06/2026 06/06/20, 06/04/2024, 05/22/2023, Additional history exists Medicare Wellness for age 65+ 06/07/2026, 06/02/2024, 05/19/2023, Additional history exists Low Dose CT (for lung CA) ag e 50-80 06/13/2026 06/13/2025, 06/09/2024, 06/05/2022 Fecal testing sDNA-FIT (Lutz guard) for age 45-75 06/22/2028 06/22/2025, 06/07/2022, 06/02/2022, Additional history exists Lipids for age 45-75 06/06/2030 06/06/2025, 06/02/2024, 05/19/2023, Additional history exists RSV vaccine for adults or (1 - 1-dose 75+ series) 2031 Hepatitis B series for 19+ Completed 05/14, 12/14/1992, 11/16/1992 Hepatitis C screening for ag e 18-79 Completed 07/20/2015 Pneumococcal series for age 50+ Completed 2 Zoster (shingles) series for age 50+ Completed 09/01/2024, 06/09/2024 Influenza Vaccine Completed 06/06/2025, , 07/28/2023, Additional history exists DEXA/DXA scan for age 65+ Completed 2024, 06/10/2022, 07/27/2015 Goals Goal Patient Goal Type Associated Problems Recent Progress Patient-Stated? Author BLOOD PRESSURE-MA INTAINS BP LESS THAN 130/80 Blood Pressure No Janice Fallon NP Procedures Procedure Name Priority Date/Time Associated Diagnosis Comments SDNA-FIT EXTERNAL (COLOGUARD) Routine 06/22/2025 8:15 AM CDT Screening for colon cancer XR DXA BONE DENSITY 2 SITES AXIAL Routine 06/13/2025 9:15 AM CDT Osteopenia of multiple sites Post-menopause CT CHEST SCREENING LOW DOSE WO CONTRAST Routine 06/13/2025 9:06 AM CDT Encounter for screening for lung cancer Former cigarette smoker VITAMIN D 25 (DEFICIENCY) Routine 06/06/2025 8:25 AM CDT Vitamin D deficiency LIPID PANEL W REFLEX MEASURED LDL Routine 06/06/2025 8:25 AM CDT Mixed hyperlipidemia BASIC METABOLIC PANEL Routine 06/06/2025 8:25 AM CDT HTN (hypertension) XR MAMMO VENTURA BILAT SCREEN Routine 06/06/2025 8:17 AM CDT Visit for screening mammogram ANTI HCV Routine 07/20/2015 12:54 PM CDT Need for hepatitis C screening test from Last 3 Months or Most Recently Relevant to Health Maintenance Results * SDNA-FIT EXTERNAL (COLOGUARD) (06/22/2025 8:15 AM CDT) NONINV COLON CA DNA+OCC BLD SCRN STL-IMP Negative Negative 06/29/2025 5:51 [address] [facility] (CLIA #:[id number]) Comment: The Cologuard Plus (TM) test was performed on this specimen. NEGATIVE TEST RESULT. A negative (normal) Cologuard Plus result means the patient has a [id number]-mkoperz chance of having colorectal cancer (CRC) or advanced precancer (polyps or lesions that could become cancer). Negative is the normal value (reference range) for this assay. Guidelines recommend screening again 3 years after a negative Cologuard Plus result. Continued screening increases the chance of finding CRC early or preventing it entirely. A clinical validation study showed the Cologuard Plus test is effective at ruling out CRC. Out of every 10,000 patients testing negative, approximately 2 will be falsely reassured that they do not have CRC, and out of every 100 patients testing negative, approximately 7 patients will be falsely reassured they do not have advanced precancer. TEST DESCRIPTION: The Cologuard Plus test is a multi-target stool DNA (mt-sDNA) test that analyzes DNA and hemoglobin biomarkers in stool. It uses a proprietary algorithm to qualitatively detect CRC and advanced precancer. It is FDA-approved and indicated for use in adults 45 years or older at average risk for CRC. A positive (abnormal) result should be followed by a colonoscopy. Patients with a negative (normal) result should screen again in 3 years. False positive and false negative results may occur. The USPSTF recommends the Cologuard test as a CRC screening option. Their modeling estimates that screening with the test every 3 years from ages 45-85 could prevent up to 73% of CRC and avoid up to 85% of CRC deaths. A 18,911-patient clinical trial found the Cologuard Plus test effectively detects CRC and precancer. The study found the test was 95% sensitive for CRC, 43% sensitive for advanced precancer, and had a 91% specificity (Cologuard Plus Clinician Brochure. [employer]. [place], [place].). Visit www.[employer].com/about/izcjnzfl-khcpllsjomv-tnrcdbdedhy for more test information, references, warnings, and precautions. Stool specimen (specimen) (Rectum) 06/22/2025 8:15 AM CDT 06/23/2025 11:40 AM CDT Nori MENDOZA URINE Final Res ult [facility] (CLIA #:[id number]) [address] [place] [address], * (ABNORMAL) XR DXA BONE DENSITY 2 SITES AXIAL (06/13/2025 9:15 AM CDT) Anatomical Region Laterality Modality Spine, HIPS, HIPL, HIPR Other Impressions 06/19/2025 3:02 PM CDT Osteopenia. RECOMMENDATIONS: The National Osteoporosis [...] recommended in 3-5 years. Saira Scott PA-C [facility] 06/19/2025 Narrative 06/19/2025 3:02 PM CDT For Patients: Results are automatically released to your [facility] ([email or web address]) account once available, in compliance with federal regulations. This means that you may see your results before your provider has had a chance to review them. Please allow 2-3 business days for your provider to comment on the results. XR DXA Bone Mineral Density (BMD) EXAM LOCATION: [address] [address] PATIENT NAME: Celina Haque DATE OF : 1955 EXAM DATE: 06/13/2025 REQUESTING PROVIDER: Nori Haque PA GENDER AT : female HEIGHT: 5' 4.09 (06/06/2025) WEIGHT: 217 lb (06/06/2025) MENOPAUSAL STATUS: Postmenopausal RACE/ETHNICITY: White RISK FACTORS: Alcohol > 3 drinks/day (prior), Smoking (prior), and White Race CURRENT MEDICATION FOR BONE LOSS: NONE INDICATION: Follow-up of existing osteopenia COMPARISON DATE(S): 2021 DXA scans are compared to prior studies for a patient only when the two (or more) studies were performed on the same scanner. It is not possible to compare data generated on one scanner to data from another because there are not standards in DXA equipment. This applies even if the two scanners are made by the same sap data architect. PROCEDURE: Dual-energy x-ray absorptiometry performed with routine technique. Reporting is completed in the form of a T-score. The T-score represents the standard deviation from peak bone mass based on young healthy adult. A Z-score is used for diagnosis in premenopausal women, and for men under the age of 50. FINDINGS: RESULT LUMBAR SPINE L1 - L4 BMD: 1.204 g/cm2 T-Score: + 0.1 Z-Score: + 0.6 Change from prior in 2021: Increase 4.9%. RESULTS FEMUR Right femoral neck BMD: 0.900 g/cm2 T-Score: - 1.0 Z-Score: - 0.1 Change from prior in 2021: Increase 4.0%. Right hip BMD: 0.870 g/cm2 T-Score: - 1.1 Z-Score: - 0.5 Change from prior in 2021: Decrease 0.7%. WHO criteria: Normal: T-score at or above -1 SD Osteopenia: T-score between -1.1 and -2.4 SD Osteoporosis: T-score at or below -2.5 SD Nori MENDOZA DEXA Final Res ult * CT CHEST SCREENING LOW DOSE WO CONTRAST (06/13/2025 9:06 AM CDT) Anatomical Region Laterality Modality Computed Tomogra phy Impressions 06/14/2025 2:28 PM CDT Negative for lung cancer screening purposes. LUNG-RADS CATEGORY 1: Negative. Continue annual screening, if eligible, with low-dose CT chest in 12 months. Please note that all CT scans at this facility use dose modulation, iterative reconstruction and/or weight-based dosing when appropriate to reduce radiation dose to as low as reasonably achievable. Dictated by: Pedro Morin MD @06/14/2025 10:05:18 AM/malena Narrative 06/14/2025 2:28 PM CDT For Patients: As a result of the 21st Century Cures Act, medical imaging exams and procedure reports are released immediately into your electronic medical record. You may view this report before your referring provider. If you have questions, please contact your health care provider. CT CHEST SCREENING LOW-DOSE WITHOUT CONTRAST, 06/13/2025 INDICATION: Lung cancer screening. History of smoking. TECHNIQUE: Low-dose lung cancer screening non-contrast CT chest. Dose reduction techniques were used. COMPARISON: 06/09/[address] FINDINGS: NODULES: Benign calcified granuloma in the right middle lobe. Previous medial left lower lobe micronodule is not visible today. LUNGS AND PLEURA: Scattered mild scarring. Hyperinflation. MEDIASTINUM: Normal. CORONARY ARTERY CALCIFICATION: None. LIMITED UPPER ABDOMEN: Normal. MUSCULOSKELETAL: Chronic right clavicle fracture. us Nori MENDOZA CT Final Res ult * LIPID PANEL W REFLEX MEASURED LDL (06/06/2025 8:25 AM CDT) CHOLESTEROL, TOTAL 175 <200 mg/dL 06/07/2025 4:47 AM CDT [facility] TRIGLYCERIDES 109 <150 mg/dL 06/07/2025 4:47 AM CDT [facility] HDL CHOLESTEROL 79 > OR = 50 mg/dL 06/07/2025 4:47 AM CDT [facility] NON HDL CHOLESTEROL 96 <130 mg/dL (calc) 06/07/2025 4:47 AM CDT [facility] Comment: For patients with diabetes plus 1 major ASCVD risk factor, treating to a non-HDL-C goal of <100 mg/dL (LDL-C of <70 mg/dL) is considered a therapeutic option. CHOL/HDLC RATIO 2.2 <5.0 (calc) 06/07/2025 4:47 AM CDT [facility] LDL-CHOLESTEROL 77 mg/dL (calc) 06/07/2025 4:47 AM CDT [facility] Comment: Reference range: <100 Desirable range <100 mg/dL for primary prevention; <70 mg/dL for patients with CHD or diabetic patients with > or = 2 CHD risk factors. LDL-C is now calculated using the Armin calculation, which is a validated novel method providing better accuracy than the Friedewald equation in the estimation of LDL-C. Sb BENTON et al. MANISHA. 2013;310(19): 5715-1116 (http://education.HealthWare[facility].com/faq/QMV158) Blood BLOOD SPECIMEN / Unknown [facility] / Unknown 06/06/2025 8:25 AM CDT 06/06/2025 8:25 AM CDT us Nori MENDOZA CHEMISTRY Final Res ult Performing Organization Address [facility]/ZIP Co de Phone Number [facility] [address] [address], [place] [phone] * VITAMIN D 25 (DEFICIENCY) (06/06/2025 8:25 AM CDT) VITAMIN D,25-OH,TOTAL,IA 40 30 - 100 ng/mL 06/07/2025 5:59 AM CDT [facility] Comment: Vitamin D Status 25-OH Vitamin D: Deficiency: <20 ng/mL Insufficiency: 20 - 29 ng/mL Optimal: > or = 30 ng/mL For 25-OH Vitamin D testing on patients on D2-supplementation and patients for whom quantitation of D2 and D3 fractions is required, the QuestAssureD(TM) 25-OH VIT D, (D2,D3), LC/MS/MS is recommended: order code 16182 (patients >2yrs). See Note 1 Note 1 For additional information, please refer to http://[employer]io.[facility].com/faq/GNT976 (This link is being provided for informational/ educational purposes only.) Blood BLOOD SPECIMEN / Unknown [facility] / Unknown 06/06/2025 8:25 AM CDT 06/06/2025 8:25 AM CDT us Nori MENDOZA SEND OUTS Final Res ult Performing Organization Address [facility]/ZIP Co de Phone Number [facility] [address] [address], [place] [phone] * BASIC METABOLIC PANEL (06/06/2025 8:25 AM CDT) SODIUM 139 135 - 146 mmol/L 06/07/2025 4:47 AM CDT [facility] POTASSIUM 4.0 3.5 - 5.3 mmol/L 06/07/2025 4:47 AM CDT [facility] CARBON DIOXIDE 30 20 - 32 mmol/L 06/07/2025 4:47 AM CDT [facility] GLUCOSE 97 65 - 99 mg/dL 06/07/2025 4:47 AM CDT [facility] Comment: Fasting reference interval CALCIUM 10.4 8.6 - 10.4 mg/dL 06/07/2025 4:47 AM CDT [facility] CREATININE 0.83 0.50 - 1.05 mg/dL 06/07/2025 4:47 AM CDT [facility] BUN/CREATININE RATIO SEE NOTE: 6 - 22 (calc) 06/07/2025 4:47 AM CDT [facility] Comment: Not Reported: BUN and Creatinine are within reference range. EGFR 77 > OR = 60 mL/min/1. 73m2 06/07/2025 4:47 AM CDT [facility] UREA NITROGEN (BUN) 10 7 - 25 mg/dL 06/07/2025 4:47 AM CDT [facility] ELECTROLYTE BALANCE 8 7 - 17 mmol/L (calc) 06/07/2025 4:47 AM CDT [facility] CHLORIDE 101 98 - 110 mmol/L 06/07/2025 4:47 AM CDT [facility] Blood BLOOD SPECIMEN / Unknown [facility] / Unknown 06/06/2025 8:25 AM CDT 06/06/2025 8:25 AM CDT us Nori MENDOZA CHEMISTRY Final Res ult [facility] [address] [place] [address], * XR MAMMO VENTURA BILAT SCREEN (06/06/2025 8:17 AM CDT) Anatomical Region Laterality Modality BREASTS, Breast Left, Breast Right Bilateral Mammography Impressions 06/06/2025 2:16 PM CDT There is no radiographic evidence for malignancy. Recommend annual mammograms. MAMMOGRAM ASSESSMENT: ACR 1 Negative PATIENTS: You will also receive a letter with your examination results in an easy to read format. If you have questions about your results, please contact your referring provider. Narrative 06/06/2025 2:16 PM CDT For Patients: As a result of the Cures Act, medical imaging exams and procedure reports are released immediately into your electronic medical record. You may view this report before your referring provider. If you have questions, please contact your health care provider. XR MAMMO VENTURA BILAT SCREEN [[id number]] CLINICAL HISTORY: This is an asymptomatic 69 y.o. patient. INDICATION FOR EXAM: Mammogram Screening. TECHNIQUE: CC and MLO views were obtained. This study was evaluated with the assistance of Computer-Aided Detection. Breast Tomosynthesis was used in interpretation. COMPARISON FILM: Yes 06/04/24 [facility] 05/22/23 [facility] FINDINGS: There are scattered areas of fibroglandular density. There are no dominant masses, suspicious micro calcifications or areas of architectural distortion. Nori MENDOZA MAMMO Final Res ult * ANTI HCV (07/20/2015 12:54 PM CDT) HEPATITIS C ANTIBODY Non-Reacti ve Non-Reacti ve 07/20/2015 4:21 PM CDT [facility] Blood specimen (specimen) BLOOD SPECIMEN / Unknown Venipuncture / Unknown 07/20/2015 12:54 PM CDT 07/20/2015 12:54 PM CDT Narrative [facility] - 07/20/2015 4:21 PM CDT Antibodies to HCV not detected; does not exclude the possibility of exposure to HCV. Janice Patton NP SEND OUTS F inal Result [facility] [address] [place] [address], [place] from Last 3 Months or Most Recently Relevant to Health Maintenance Insurance [employer] MR PB ONLY MEDICA PRIME SOLUTION HB MEDICARE PART A HB ONLY MEDICARE PART B HB ONLY WORKERS COMP Care Teams Manufacturing Executive Relationship Specialty Start Date End Date Nori Haque PA [address] [place] [address] PCP - General Physician Bilingual Student Tutor 02/04/23
[2025-08-22 10:19] VITALS: BP 184/83; PULSE 80; RESP 24; TEMP 36.6; O2SAT 95; BMI 36.9
--- NOTE | 2025-08-22 10:28 | CRLHL7_ITS ---
For Patients: As a result of the Century Cures Act, medical imaging exams and procedure reports are released immediately into your electronic medical record. You may view this report before your referring provider. If you have questions, please contact your health care provider. INDICATION: cough, wheezing TECHNIQUE: Chest 2 views COMPARISON: 11/16/2024 FINDINGS: Chronic right-sided rib fracture deformities. Patchy areas of scarring bilaterally. Cardiac silhouette is similar. No pneumothorax. No dense infiltrate. No acute CHF. No pleural effusion. Degenerative disc disease. No acute vertebral body fracture. Old right clavicle fracture. IMPRESSION: No acute findings. Dictated by Jorge Brown MD @ 08/22/2025 11:05:11 AM (Electronically Signed)
--- NOTE | 2025-08-22 10:33 | ED.GENADULT ---
HPI - General Adult General Date Seen: 08/22/25 Chief complaint: Cough Stated complaint: Cough, shortness of breath Time Seen by Provider: 08/22/25 10:19 History of Present Illness HPI narrative: Patient is a 70-year-old woman with a history of tobacco use but she quit smoking 2 years ago. No significant history of COPD or asthma. She says she gets a chest x-ray annually and had 1 in May that looked good. For the past 2 weeks she has been struggling with a cough, sore throat which she thinks is due to the cough, some shortness of breath and she feels that she has been wheezing. She says she waited for 2 weeks because she was under the impression that he had to wait 2 weeks before getting any treatment for cold. She said she just could not take it anymore because of the shortness of breath. She has not had a fever that she knows of, does not have chest pain. No unusual leg pain or swelling. Related Data Home Medications ?Medication ?Instructions ?Recorded ?Confirmed atorvastatin 20 mg tablet 20 mg PO HS 07/21/23 08/22/25 calcium 333 mg-vit D3 200 1 tab PO DAILY 07/21/23 01/03/25 unit-magnesium 133 mg-zinc 5 mg tablet hydrochlorothiazide 12.5 mg tablet 12.5 mg PO DAILY 07/21/23 08/22/25 lisinopril 10 mg tablet 10 mg PO DAILY 07/21/23 08/22/25 cholecalciferol (vitamin D3) 25 25 mcg PO DAILY 08/12/23 01/03/25 mcg (1,000 unit) capsule multivitamin with minerals-folic 1 tab PO DAILY 08/12/23 01/03/25 acid 0.4 mg tablet (One-A-Day Women's 50 Plus) acetaminophen 500 mg tablet 500 mg PO Q4H PRN 11/29/24 01/03/25 (Acetaminophen Extra Strength) cyclobenzaprine 10 mg tablet 10 mg PO BID 11/29/24 01/03/25 ibuprofen 600 mg tablet 600 mg PO Q6H PRN 11/29/24 01/03/25 Allergies Allergy/AdvReac Type Severity Reaction Status Date / Time codeine Allergy Mild feeling as Verified 01/03/25 10:42 if flying out of body Penicillins Allergy Hives Verified 01/03/25 10:42 Forrest And Derivatives AdvReac Mild Hives Verified 01/03/25 10:42 berries AdvReac Mild Hives Uncoded 01/03/25 10:42 Review of Systems Status of ROS: Reports: 10 or more systems reviewed and unremarkable except as noted in History and below [facility] Medical History Prediabetes ?R73.03 - Prediabetes (ICD-10) Obesity ?E66.9 - Obesity, unspecified (ICD-10) History of tobacco abuse ?Z87.891 - Personal history of nicotine dependence (ICD-10) Bilateral hip joint arthritis ?M16.0 - Bilateral primary osteoarthritis of hip (ICD-10) Hypertension ?I10 - Essential (primary) hypertension (ICD-10) Osteopenia ?M85.80 - Other specified disorders of bone density and structure, unspecified site (ICD-10) Vitamin D deficiency ?E55.9 - Vitamin D deficiency, unspecified (ICD-10) Hyperlipidemia ?E78.5 - Hyperlipidemia, unspecified (ICD-10) Surgical History Status post total hip replacement, 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) ?Z96.642 - Presence of left artificial hip joint (ICD-10) History of ?Z98.891 - History of uterine scar from previous surgery (ICD-10) Social History What is your current living situation?: I presently have a place to live Problems where you live: no known problems Problems where you live details: N/A In the past 12 months, utilities in danger of being shut off: no In past 12 months, lack of transportation kept you from medical appts, meetings, work, or getting things needed for daily living: no In the past 12 mos, have been you worried that your food would run out before you had money to buy more?: never true In the past 12 mos, the food you bought just didn't last and you didn't have money to buy more?: never true Highest level of school completed/degree received: high school graduate Smoking Status: Former smoker What tobacco products do you use: cigarettes Smoking quit date/years: <= 15 years ago Do you use any of these nicotine containing products: None Second hand tobacco smoke exposure: No How often do you have a drink containing alcohol: never AUDIT-C Alcohol total score: 0 Non-prescribed substance use: denies use Caffeine: Yes How often does anyone, including family, friends and others, physically hurt you: never How often does anyone, including family, friends and others, insult or talk down to you: never How often does anyone, including family, friends and others, threaten you with harm: never How often does anyone, including family, friends and others, scream or curse at you: never service: No Exam Narrative: Exam Narrative: Vital signs reviewed In general, an alert, nontoxic elderly woman. Slightly dyspneic after walking in from triage. Head: Normocephalic, atraumatic. Eyes: Sclera clear. Pupils equal and reactive. ENT: Mucous membranes moist. Throat normal. Neck: Supple without adenopathy. Heart: Regular rate and rhythm without murmur. Lungs: She has a few scattered wheezes primarily on the left. I do not hear any crackles. No increased work of breathing at rest. Abdomen: Soft, nontender to palpation. Extremities: Well perfused, pulses intact. No significant edema. Neurologic: Alert, conversant. Speech fluent, face symmetric. Moves all extremities equally. Skin: Warm, dry well perfused. Affect: Normal. Const: Vital Signs, click to edit/add: Vital Signs - 24 hr 08/22/25 10:19 Temperature 98 F Pulse Rate [Pulse Oximeter] 80 Respiratory Rate 24 Blood Pressure [Ri ght Upper Arm] 184/83 H Pulse Oximetry 95 Oxygen Delivery Me thod Room Air Course Course ED Course: Patient had a chest x-ray which by my review does not show an infiltrate, chronic findings but nothing acute per radiology report which was also reviewed. She had a DuoNeb here as well as 60 mg of prednisone. I do not see evidence on history exam to suggest that this represents PE, congestive heart failure, acute coronary syndrome, pleural effusion, pneumothorax, or other acute process involving lungs. This seems to be likely viral with superimposed bronchospasm/bronchitis. Will treat with albuterol and prednisone. Viral swab is negative. Primary care follow-up if not improving over the next week or so. Return any time for significant worsening, increased shortness of breath, new fevers etcetera. Diagnosis: Bronchitis. History of tobacco use. Vital Signs Vital signs: Initial Vital Signs Temperature 98 F 08/22/25 10:19 Temperature Source Temporal Artery Scan 08/22/25 10:19 Pulse Rate 80 08/22/25 10:19 Respiratory Rate 24 08/22/25 10:19 Blood Pressure 184/83 H 08/22/25 10:19 Blood Pressure Mean 116 H 08/22/25 10:19 Blood Pressure Position Sitting 08/22/25 10:19 Pulse Oximetry 95 08/22/25 10:19 Oxygen Delivery Method Room Air 08/22/25 10:19 Vital Signs Temperature 98 F 08/22/25 10:19 Pulse Rate 80 08/22/25 10:19 Respiratory Rate 24 08/22/25 10:19 Blood Pressure 184/83 H 08/22/25 10:19 Pulse Oximetry 95 08/22/25 10:19 Oxygen Delivery Method Room Air 08/22/25 10:19 Temperature 98 F 08/22/25 10:19 Pulse Rate 80 08/22/25 10:19 Respiratory Rate 24 08/22/25 10:19 Blood Pressure 184/83 H 08/22/25 10:19 Pulse Oximetry 95 08/22/25 10:19 Oxygen Delivery Method Room Air 08/22/25 10:19 Medications Administered Medications: Discontinued Medications Generic Name Dose Route Start Last Admin Trade Name Freq PRN Reason Stop Dose Admin Albuterol/Ipratropium 1 neb 08/22/25 10:28 08/22/25 10:41 Iprat-Albut 0.5-2.5 Mg/3 Ml Neb IH 08/22/25 10:29 1 neb ONCE ONE Administration Prednisone 60 mg 08/22/25 10:28 08/22/25 10:42 Prednisone 20 Mg Tablet PO 08/22/25 10:29 60 mg ONCE ONE Administration Medical Decision Making Lab Data Labs: Lab Results 08/22/25 Range/Units 10:20 SARS-CoV-2 (PCR) Negative SARS-CoV-2 (Negative) Influenza Type A (PCR) Negative PCR FLU A (Negative) Influenza Type B (PCR) Negative PCR FLU B (Negative) RSV (PCR) Negative PCR RSV (Negative) Imaging Data Chest x-ray: Attestation: I have reviewed the pertinent imaging results. Radiologist's impression: Patient: Celina Haque MR#: [id number] : 1955 Acct:[id number] Loc: ED Service Date: 08/22/[address]: Ordering Physician: Eulalia Mays M.D. Date of Service: 08/22/25 Procedure(s): XR chest 2V Accession Number(s): [id number] cc: Eulalia Mays M.D.; Nori Haque DARRON~ For Patients: As a result of the Cures Act, medical imaging exams and procedure reports are released immediately into your electronic medical record. You may view this report before your referring provider. If you have questions, please contact your health care provider. INDICATION: cough, wheezing TECHNIQUE: Chest 2 views COMPARISON: 11/16/2024 FINDINGS: Chronic right-sided rib fracture deformities. Patchy areas of scarring bilaterally. Cardiac silhouette is similar. No pneumothorax. No dense infiltrate. No acute CHF. No pleural effusion. Degenerative disc disease. No acute vertebral body fracture. Old right clavicle fracture. IMPRESSION: No acute findings. Dictated by Jorge Brown MD @ 08/22/2025 11:05:11 AM Discharge Plan Discharge Clinical Impression: Bronchitis Patient Disposition: Home, Self-Care Condition: Stable Instructions: Acute Bronchitis (ED) Additional Instructions: Take prednisone as prescribed. You can use the albuterol inhaler every 4 hours as needed for wheezing, cough, shortness of breath. Your x-ray today and exam do not suggest that you have pneumonia, and antibiotics are unlikely to be helpful in the setting of bronchitis. If you are not improving over the next week, please follow-up with primary care. Return to the ER at any time if you have significant worsening such as fevers, more severe shortness of breath that does not respond to your inhaler, or other new symptoms. Prescriptions: No Action lisinopril 10 mg tablet 10 mg PO DAILY hydrochlorothiazide 12.5 mg tablet 12.5 mg PO DAILY atorvastatin 20 mg tablet 20 mg PO HS calcium carb-D3-mag [id number] dx-[id number]-[id number]-mg tablet 1 tab PO DAILY Rx Instructions: administer with a meal ibuprofen 600 mg tablet 600 mg PO Q6H PRN cyclobenzaprine 10 mg tablet 10 mg PO BID acetaminophen [Acetaminophen Extra Strength] 500 mg tablet 500 mg PO Q4H PRN multivit with min-folic acid [One-A-Day Women's 50 Plus] 0.4 mg tablet 1 tab PO DAILY cholecalciferol (vitamin D3) 25 mcg (1,000 unit) capsule 25 mcg PO DAILY Follow Up/Referrals: Nori Haque PA-C [Primary Care Provider, Family Practice] Stand Alone Forms: [email or web address] Info Instructions
[2025-08-22] MEDS: IPRAT-ALBUT 0.5-2.5 MG/3 ML NEB 1 NEB IH (10:41)
[2025-08-22 11:06] LABS: PCR FLU A Negative PCR FLU A (Negative); PCR FLU B Negative PCR FLU B (Negative); PCR RSV Negative PCR RSV (Negative); SARS PCR* Negative SARS-CoV-2 (Negative)
== END 2025-08-22 11:19 | disposition home or self-care (01) ==
PROVIDERS: Emergency Provider Emergency Medicine; PCP Student in an Organized Health Care Education/Training Program
DX: J20.9 Acute bronchitis, unspecified (principal); Z87.891 Personal history of nicotine dependence
CPT/HCPCS: 71046; 87631; 99284; J7512